=== PATIENT | male | born 1955 | race African-American/Black ===

== ENCOUNTER → 2017-11-29 08:19 | Outpatient (CLI) | payer MEDICAID, SELFPAY ==
--- NOTE | 2017-11-29 15:18 | PFTCOMP ---
COMPLETE PULMONARY FUNCTION TEST INTERPRETATION Brief HPI: Patient is a 62 year old Black male, currently under the care of Francy Stearns, who presents to [facility] for complete pulmonary function tests secondary to diagnosis of COPD. Respiratory therapist reports good effort and reproducible results. Interpretation: Forced expiration spirometry shows a moderately-severe large airways obstructive ventilatory defect with an FEV1 of 50% predicted. There is a significant bronchodilator response in FVC by ATS criteria. Spirograms are of good quality and plateau slowly, indicating slowly emptying areas of the lungs. The respiratory flow volume loop shows decreased expiratory flow rates at all lung volumes consistent with airway obstruction. Lung volumes by body plethysmography show a normal total lung capacity at 7.46 L, 106% predicted. FRC and RV are elevated out of proportion. Lung volume measurements are consistent with air-trapping. Diffusion capacity by carbon monoxide is decreased at 59% predicted. The airway resistance is elevated. No previous pulmonary function tests were available for review. Impression: Partially reversible moderately severe large airways obstructive ventilatory defect resulting in air trapping and a symmetric reduction diffusing capacity, consistent with a diagnosis of COPD.
== END ==
PROVIDERS: Referring Provider Nurse Practitioner Family; Visit Provider Nurse Practitioner Family
DX: J44.9 Chronic obstructive pulmonary disease, unspecified (principal)
CPT/HCPCS: 94060; 94726; 94729

== ENCOUNTER → 2018-09-18 08:36 | Outpatient (CLI) | payer MEDICAID, SELFPAY ==
--- NOTE | 2018-09-18 09:04 | RAD_ITS ---
STUDY: X-RAY CHEST REASON FOR EXAM: Male, 63 years old. COPD and asthma. TECHNIQUE: Frontal and lateral views of the chest. COMPARISON: None. FINDINGS: There is hyperexpansion of the lungs. There is opacity in the posterior right lung base consistent with infiltrate. Mass is not excluded. Probable trace right pleural effusion. Recommend follow-up. Normal left lung. Normal size heart. Normal mediastinum and yuni. Normal visualized pulmonary arteries. Normal visualized aortic arch and descending thoracic aorta. Normal visualized thoracic spine. Normal visualized ribs, clavicles, and shoulders. There is no demonstrated abnormality of the visualized soft tissue structures of the upper abdomen. RAD/Chest PA and Lateral IMPRESSION: Opacity in the posterior right lung base consistent with infiltrate. Mass is not excluded. Recommend follow-up. Electronically Signed: Hai Chairez MD at 17:16 EDT , Service support ,
--- NOTE | 2018-09-18 10:27 | US_ITS ---
STUDY: ABDOMINAL ULTRASOUND REASON FOR EXAM: Male, 63 years old. Abdominal pain. Previous right nephrectomy for renal cell carcinoma. TECHNIQUE: Transabdominal ultrasound was performed with real-time and static block scale imaging. TECHNICAL QUALITY: Adequate. COMPARISON: None. FINDINGS: Liver: The liver measures 17.2 cm. There is normal echogenicity of the liver. The bile ducts are within normal limits. There is hepatic color flow. The direction of portal flow is hepatopetal. There is no demonstrated mass lesion. Portal vein measurement: Gallbladder: Normal distended gallbladder. The gallbladder wall measures 2 mm. There is a negative sonographic Perez's sign. There is no pericholecystic fluid. There are no gallstones. Common Bile Duct (C.B.D.): The common bile duct measures 4 mm. Pancreas: Normal size of the head, body and tail of the pancreas. There is normal echogenicity of the pancreas. There is no demonstrated pancreatic mass or cyst. Spleen: Normal size of the spleen. The spleen measures 9.0 cm. Right Kidney: Surgically absent. Left Kidney: Normal size of the left kidney. The left kidney measures 11.7 cm. Normal renal cortex. The left cortex measures 2.3 cm. There is no demonstrated renal mass or cyst. There is no left hydronephrosis. Aorta: 2.3 cm I.V.C.: The IVC is patent. There is no ascites. Abnormal appearance of the visualized right hemithorax, see chest x-ray report US/Abdomen Complete IMPRESSION: No acute abnormality in the abdomen or pelvis. Electronically Signed: Hai Chairez MD at 17:43 EDT , Service support ,
== END ==
DX: J44.9 Chronic obstructive pulmonary disease, unspecified (principal); R10.84 Generalized abdominal pain
CPT/HCPCS: 71046; 76700

== ENCOUNTER 2018-09-20 15:59 | Inpatient (IN) | payer MEDICAID, SELFPAY ==
[2018-09-20] VITALS (11 sets, daily range): BP systolic 127–158; BP diastolic 74–87; PULSE 106–114; RESP 20–28; TEMP 37.1–37.3; O2SAT 90–95; BMI 22.6; BMI 21.6
--- NOTE | 2018-09-20 16:12 | EKG12_ITS ---
Test Reason : SOB Blood Pressure : / mmHG Vent. Rate : 108 BPM Atrial Rate : 108 BPM P-R Int : 194 ms QRS Dur : 064 ms QT Int : 300 ms P-R-T Axes : 078 072 055 degrees QTc Int : 402 ms Sinus tachycardia Nonspecific T wave abnormality Abnormal ECG Confirmed by ROMINA DUMONT, JOSÉ ([id number]), industrial editor PEDRO PETE ([id number]) on 09/25/2018 12:26:09 PM Referred By: Shanta Colon Confirmed By:JOSÉ VANEGAS MD
--- NOTE | 2018-09-20 16:20 | RAD_ITS ---
STUDY: X-RAY CHEST REASON FOR EXAM: Male, 63 years old. Chest pain TECHNIQUE: Frontal view of the chest COMPARISON: 09/18/2018 FINDINGS: There is opacity noted in the right lung base which is worse when compared with the prior exam. This is likely due to a combination of effusion and infiltrate. The left lung is clear. There is no left-sided effusion. There is no pneumothorax. The heart is normal in size. The visualized osseous structures are within normal limits. RAD/Chest 1 View (Portable) IMPRESSION: Increasing opacity in the right lung base which is likely due to a combination of effusion and infiltrate. Electronically Signed: Vladimir Leslie, at 16:32 EDT Tel , Service support ,
[2018-09-20] MEDS: Ipratropium/Albuterol Sulfate 3 ML AMPUL.NEB INHALATION ×2 (16:30→20:05)
[2018-09-20 17:11] LABS: Anion Gap 7 (5-15); BUN 17 mg/dL (7-18); BUN/Creat Ratio 11.5 RATIO (10-20); Calcium,Total 9.3 mg/dL (8.5-10.1); Chloride 97 mmol/L (98-107); Creatinine, Serum 1.48 mg/dL (0.70-1.30); EST Glomerular Filtration Rate 51 mL/min (>60); Est Glom Filt Rate - Afr Amer 62 mL/min (>60); Estimated Creatinine Clearance 55.49 ml/min; Glucose 102 mg/dL (74-106); Potassium 4.3 mmol/L (3.5-5.1); Sodium Level 129 mmol/L (136-145)
[2018-09-20] MEDS: Morphine 4 MG/ML Syringe IV (17:12)
[2018-09-20] MEDS: 0.9% Normal Saline 1,000 ML 150 ML IV (17:12)
[2018-09-20] MEDS: Ondansetron 4 MG/2 ML Vial IV (17:12)
[2018-09-20 17:14] LABS: Absolute Lymphocyte Count 1.44 X10^3/uL (0.83-4.51); Absolute Neutrophil Count 15.9 X10^3/uL (2.0-7.7); Basophil# 0.02 X10^3/uL; Basophil% 0.1 % (0-1); Eosinophil# 0.17 X10^3/uL; Eosinophils% 0.9 % (0-5); Hematocrit 38.8 % (40-54); Hemoglobin 13.6 g/dL (13.0-16.5); Lymphocyte # 1.44 X10^3/ul (4.0); Lymphocyte % 7.5 % (19-41); Mean Corp Hgb Conc 35.1 g/dL (32-36); Mean Corpuscular Hgb 33.2 pg (27.0-32.0); Mean Corpuscular Volume 94.6 fL (80-94); Mean Platelet Vol. 8.9 fl (6.2-12.0); Monocyte# 1.56 X10^3/uL; Monocyte% 8.1 % (0-10); NRBC Flagged by Analyzer 0 % (0-5); Neutrophil # 15.87 X10^3/uL (2.7-7.7); Neutrophil % 82.6 % (47-70); POSITIVE DIFFERENTIAL YES; Platelet Count 466 K/mm3 (150-450); RBC Distribution Width CV 11.9 % (11.6-14.6); RBC Distribution Width SD 41.3 fl (35.1-43.9); White Blood Count 19.2 K/mm3 (4.4-11.0)
[2018-09-20 17:21] LABS: Differential Indicated SCAN CRITERIA MET
[2018-09-20 17:31] LABS: D-Dimer Quantitative (DVT/PE) 3.77 FEU/ug/m (0.27-0.49)
--- NOTE | 2018-09-20 17:32 | ED.DCSUM_ITS ---
- ER Visit Summary Date of Service: 09/20/18 Chief Complaint: [Shortness of breath] History of Present Illness: The patient is a 63 M [presents to the emergency department shortness of breath for last 2 weeks. Patient has had some intermittent cough but just feels like he cannot get anything up. Patient s tates that he was recently seen a couple days ago at the [facility] by his primary care physician had a chest x-ray that showed questionable pneumonia. Patient also claims of right-sided chest discomfort that is worse with breathing and moving. Patient does have history of asthma and COPD. Patient has remote history of kidney cancer with a right kidney being resected. Patient had chills and sweats but no documented fever. Complains of dyspnea with exertion.] Physical Examination: [HEENT-PERRLA, EOMI. Cranial nerves II through XII grossly intact. TMs clear. Mucous membranes moist. No adenopathy. Cardiovascular-regular rate and rhythm without murmur or ectopy Lungs-breath sounds bilaterally. Patient has some coarse breath sounds and rhonchi in the right base. Few rales in the base noted. No accessory muscle use or retractions. Abdomen-normoactive bowel sounds, soft, nontender, no rebound or rigidity, no peritoneal signs. Extremities-intact ?4, normal range of motion, normal pulses, atraumatic] Test Results: [EKG obtained showed sinus rhythm with a ventricular rate of [address] changes. CBC with differential showing a 19.2. Chemistries showed a sodium 129, potassium 4.3, chloride 97, CO2 25. Troponin is less than 0.015. D-dimer was elevated at over 3. CT of the chest was ordered and is pending. Chest x-ray showed right lower lobe infiltrate. She was ordered.] Emergency Department Course and Treatment: [Started on Rocephin and Zithromax. Case was discussed with hospitalist will evaluate patient for admission] Treatment Plan: [Admit for IV antibiotics.] Disposition: [Admit] Impression: [Acquired pneumonia Dyspnea] This note was generated with [employer] dictation software. It may contain incorrect words, spelling, and punctuation that were not noted in review of the chart p rior to signing ED Disposition - Plan for ED Patient: Referrals: Katharina Nation,Giselle Ho [Primary Care Provider] -
--- NOTE | 2018-09-20 17:32 | CT_ITS ---
STUDY: CTA CHEST REASON FOR EXAM: Male, 63 years old. Dyspnea and shortness of breath RADIATION DOSAGE (If Supplied By Facility): CTDIvol = ( 9.69 ) mGy, DLP = ( 312.48 ) mGycm TECHNIQUE: The examination was performed with the intravenous administration of 100 IV Isovue 300. Post-processing of the angiographic images was performed, with multiplanar reformation and 3D reconstruction. Individualized dose optimization techniques were used for this CT. COMPARISON: September 20, 2018 chest radiograph FINDINGS: The main pulmonary arteries are well-opacified. There is poor opacification of the descending interlobar branch of the right pulmonary artery and segmental vessels to the right lower lobe as well as the subsegmental vessels to the left lower lobe which may be attributed to motion artifact as well as superimposed pulmonary parenchyma however cannot exclude coexisting pulmonary embolus. Atherosclerotic changes of the aorta without evidence for aneurysm.. There is no demonstrated aortic dissection. Normal heart and pericardium. There is right hilar nodularity possibly adenopathy as well as subcarinal adenopathy. There are tiny suleiman calcifications on the right Normal visualized trachea and bronchi. . Mild generalized interstitial thickening. There is a multiloculated right pleural effusion in association with consolidation of the right lower lobe demonstrating pocket of fluid which may be consistent with changes usually attributed to endobronchial or peribronchial obstruction Tiny calcified granuloma in right upper lobe Normal chest wall structures. Dorsal spine demonstrates mild spondylosis Normal visualized upper abdomen. CT/CTA Chest W/WO Contrast IMPRESSION: Mild diffuse interstitial thickening. Consolidation of the right lower lobe with fluid pocket which may be attributed to endobronchial or peribronchial obstruction in association with right hilar and subcarinal adenopathy Suboptimal opacification of the vessels to the lower lobes primarily due to artifact. . Cannot definitively exclude coexisting pulmonary embolus. Would recommend Doppler study of the venous system of lower extremities if clinically warranted Electronically Signed: Salomon Jose MD at 19:07 EDT , Service support ,
--- NOTE | 2018-09-20 17:37 | NURSING ---
MED SURG PNEUMONIA, DYSPNEA KORAM
--- NOTE | 2018-09-20 17:44 | HP.PCM_ITS ---
History of Present Illness Date of Admission: 09/20/18 Chief Complaint: shortness of breath The patient is a 63 year old M past medical history as listed. He was admitted through the ED on 09/20/2018 with complaint of shortness of breath over the past few weeks which had worsened on the day of admission. He also had associated cough which was nonproductive as he said he felt a difficulty expectorating sputum. Shortness of breath was present both at rest and with exertion. He denied any fever chills, palpitations or dizziness but did admit to some mild diarrhea. He also had left-sided chest pain which was worsened with breathing . review of systems otherwise negative. Labs were significant for pulse rate of 114 respiratory rate of 28 with temperature of 98.9 at time of review. Blood pressure was 146/87. Chemistry was significant for sodium of 129 and creatinine of 1.48. CBC showed WBC of 19.2 and hemoglobin of 13.6 with platelets of 466. Chest x-ray showed increasing opacity in the right lung base likely due to combination of effusion and infiltrate. His d-dimer was also elevated and CT angiogram was pending at time of review. He has been admitted to be managed for sepsis due to community acquired pneumonia. [] Past Medical History Allergies grass pollen Allergy (Verified 09/20/18 16:00) Shortness of breath mold Allergy (Verified 09/20/18 16:00) Shortness of breath Surgical History: dilatation and curettage, - - nephrectomy o/a of kidney tumor Lives: Spouse/ Significant Other Smoking Status: Heavy Smoker (>10/day) Tobacco Use: Non-smoker Alcohol: None, Heavy - *Family History Maternal History Items: No pertinent history Paternal History Items: No pertinent history Review of Systems Constitutional: Reports: Malaise, Weakness, Fatigue. Denies: Chills, Fever, We ight Change Eyes: Denies: Blurred vision HEENT: Denies: Head Aches, Sinus Congestion, Sinus Drainage Cardiovascular: Reports: Chest Pain - left sided pleuritic chest pain, Palpitations. Denies: Chest Pressure, Chest Tightness, Edema Respiratory: Reports: Cough, Pleuritic Pain, Shortness of Breath, Shortness of breath at rest, Shortness of breath upon exertion, Wheezing. Denies: Hemoptysis, Sputum production Gastrointestinal: Reports: Diarrhea. Denies: Abdominal Pain, Nausea, Vomiting Genitourinary: Denies: Dysuria Musculoskeletal: Denies: Joint Pain, Joint Tenderness Skin: Denies: Rash, Wounds Neurological: Denies: Numbness, Tingling, Focal weakness Psychiatric: Denies: Anxiety, Depression, Homicidal Ideations, Suicidal Ideations Hematologic/ Lymphatic: Denies: Easy Bruising, Easy Bleeding VTE Information - Inpt Only VTE Present on Admission: No VTE Pharm Prophylaxis ordered?: Yes - Physical Exam General: Alert, Oriented x3, Cooperative, No apparent distress HEENT: Atraumatic, PERRLA, EOMI, Normocephalic Oral: Moist Mucosa Neck: Supple, No JVD, Negative Carotid Bruits Lungs: - - significantly decreased breath sounds in right mid and lower lung acuña. NO wheezing or crackles Cardiovascular: Normal S1, Normal S2, No murmurs, Tachycardic Abdomen: Bowel Sounds Present, Soft, Non Tender Extremities: No clubbing, No cyanosis, No edema, Capillary Refill Less than 3 Seconds Skin: No rashes, No breakdown Musculoskeletal: No Tenderness to Palpation of Joints or Extremities Lymphatic: No Cervical, Supraclavicular, or Inguinal Adenopathy Neurological: Cranial nerves II-XII grossly intact Psych/Mental Status: Normal Affect, Appropriate, Alert and oriented to time, place, person, mood and affect Vital Signs Temp Pulse Resp BP Pulse Ox 98.9 F 114 H 28 H 146/87 H 93 09/20/18 17:03 09/20/18 17:39 09/20/18 17:39 09/20/18 17:39 09/20/18 17:43 Oxygen Delivery Method Room Air Weight: 165 lb Body Mass Index (BMI) 22.6 Laboratory Tests Past 24 Hrs 09/20/18 09/20/18 09/20/18 16:30 16:30 16:30 WBC 19.2 H RBC 4.10 L Hgb 13.6 Hct 38.8 L MCV 94.6 H MCH 33.2 H MCHC 35.1 RDW Std Deviation 41.3 RDW Coeff of Clemencia 11.9 Plt Count 466 H MPV 8.9 Immature Gran % (Auto) 0.800 Neut % (Auto) 82.6 H Lymph % (Auto) 7.5 L [place] % (Auto) 8.1 Eos % (Auto) 0.9 Baso % (Auto) 0.1 Absolute Neuts (auto) 15.9 H Absolute Lymphs (auto) 1.44 Absolute Nucleated RBC 0.00 Nucleated RBC % 0 D-Dimer Quant (PE/DVT) 3.77 H* Sodium 129 L Potassium 4.3 Chloride 97 L Carbon Dioxide 25.0 Anion Gap 7 BUN 17 Creatinine 1.48 H Estim Creat Clear Calc 55.49 Est GFR (MDRD) Af Amer 62 Est GFR (MDRD) Non-Af 51 L BUN/Creatinine Ratio 11.5 Glucose 102 Calcium 9.3 Troponin I < 0.015 Diagnostic Data Chest X-Ray 09/20/18 16:20 IMPRESSION: Increasing opacity in the right lung base which is likely due to a combination of effusion and infiltrate. Electronically Signed: Vladimir Mariama, at 16:32 EDT Tel , Service support , Assessment/Plan 63-year-old male admitted with complaint of shortness of breath and chest pain. 1. Sepsis due to community acquired pneumonia * admit to PCU with telemetry * SIRS criteria is 3/4 (tachycardia, tachypnea and leucocytosis) with pneumonia as focus of infection * started on IV ceftriaxone and azithromycin; will continue * get blood and sputum cultures as well as sputum gram stain * hydrate with IVF NS per sepsis protocol * check lactic acid * breathing treatments. Titrate oxygen to maintain sats>90% * 2. Hyponatremia. Sodium is 129. This is likely due to dehydration he also has elevated creatinine of 1.48. Will hydrate and monitor. 3. ANTOINE: Creatinine is 1.48. No baseline to compare with. This is likely due to dehydration. Will hydrate with IV fluids and monitor. COPD: Give breathing treatments. 4. History of nicotine dependence: Smokes 1 pack daily. Counseled to quit. Nicotine patch 21 mg daily. Prophylaxis: Lovenox Code Visit Inpatient E&M: 58767 Init Hosp L3
[2018-09-20 17:51] LABS: Differential Comment SCANNED
[2018-09-20] MEDS: Ceftriaxone 1 GM/50 ML BAG IV (17:57)
[2018-09-20 18:31] LABS: Lactic Acid 1.8 mmol/L (0.4-2.0)
[2018-09-20] MEDS: Fluticasone 0.05% 1 SPRAY NASAL.SRY NASAL (21:12)
[2018-09-20] MEDS: Acetaminophen 500 MG Tablet 1000 MG PO (22:13)
[2018-09-20] MEDS: MELATONIN 3 MG TABLET PO (22:13)
[2018-09-21] VITALS (18 sets, daily range): BP systolic 120–144; BP diastolic 67–81; PULSE 98–119; RESP 16–20; TEMP 36.9–38.5; O2SAT 92–97
[2018-09-21 06:00] LABS: Absolute Neutrophil Count 14.1 X10^3/uL (2.0-7.7); Basophil# 0.02 X10^3/uL; Basophil% 0.1 % (0-1); Eosinophil# 0.24 X10^3/uL; Eosinophils% 1.3 % (0-5); Hematocrit 35.3 % (40-54); Hemoglobin 12.2 g/dL (13.0-16.5); Lymphocyte % 8.4 % (19-41); Mean Corp Hgb Conc 34.6 g/dL (32-36); Mean Corpuscular Hgb 32.8 pg (27.0-32.0); Mean Corpuscular Volume 94.9 fL (80-94); Mean Platelet Vol. 8.9 fl (6.2-12.0); Monocyte# 1.92 X10^3/uL; Monocyte% 10.7 % (0-10); NRBC Flagged by Analyzer 0 % (0-5); Neutrophil # 14.07 X10^3/uL (2.7-7.7); Neutrophil % 78.8 % (47-70); POSITIVE DIFFERENTIAL YES; Platelet Count 388 K/mm3 (150-450); RBC Distribution Width CV 11.9 % (11.6-14.6); RBC Distribution Width SD 41.7 fl (35.1-43.9); Red Blood Count 3.72 M/mm3 (4.6-6.2); White Blood Count 17.9 K/mm3 (4.4-11.0)
[2018-09-21 06:11] LABS: Differential Indicated SCAN CRITERIA MET
[2018-09-21 06:21] LABS: Anion Gap 8 (5-15); BUN 19 mg/dL (7-18); BUN/Creat Ratio 14.1 RATIO (10-20); Calcium,Total 8.3 mg/dL (8.5-10.1); Chloride 99 mmol/L (98-107); Creatinine, Serum 1.35 mg/dL (0.70-1.30); EST Glomerular Filtration Rate 57 mL/min (>60); Est Glom Filt Rate - Afr Amer 69 mL/min (>60); Estimated Creatinine Clearance 57.87 ml/min; Glucose 127 mg/dL (74-106); Potassium 4.8 mmol/L (3.5-5.1); Sodium Level 131 mmol/L (136-145)
[2018-09-21] MEDS: Ipratropium/Albuterol Sulfate 3 ML AMPUL.NEB INHALATION ×4 (06:46→20:22)
[2018-09-21] MEDS: Budesonide Respules 0.5 MG/2 ML AMPUL.NEB. INHALATION ×2 (06:46→20:22)
[2018-09-21 06:58] LABS: Differential Comment SCANNED; Platelet Estimate SLT INC (ADEQ)
[2018-09-21] MEDS: Fluticasone 0.05% 1 SPRAY NASAL.SRY NASAL ×2 (10:01→21:24)
[2018-09-21] MEDS: Ceftriaxone 1 GM/50 ML BAG IV ×2 (10:02→23:02)
[2018-09-21] MEDS: Enoxaparin 40 MG/0.4 ML Syringe SC (10:02)
--- NOTE | 2018-09-21 11:47 | CASEMGMT ---
RN CM ENHANCED ENVIRONMENTAL OPERATOR CM to room to meet with patient for initial transition planning/care coordination assessment. RN LARISSA introduced self and role at [facility]. Pt voices understanding and consents to assessment at this time. Pt resting in bed in no distress at this time. Pt is A/O at this time and answers all questions appropriately. Care providers, pharmacy, and demographics verified at this time. PCP: Giselle Ho [facility] Specialists: Denies Preferred Pharmacy: [facility] [place] Insurance: [employer] Prescription Benefit: Yes Living Will/HPOA: Pt does not currently have LW/HCPOA and declines wanting any info. LNOK: Living Arrangements: Lives with in 2 story home. Denies difficulty with stairs. States is independent w/ADL's and he and his share home mgmt tsks. He states his does the mowing d/t his allergies. Transportation: Pt states drives self and states no transportation concerns at this time. will drive home @ d/c DME: Denies using any DME and denies needs. Does not have home O2. Denies preference of DME company if he would need to go home on O2. HHC/SNF: No history of either and denies needs. No needs identified. PT/OT evals pending. Pt wishes to return home and states has no concerns with going home at time of discharge. CM to follow for home oxygen needs and any further discharge planning/needs. Pt voices no further concerns/needs at this time. Advised pt to ask for CM if any further questions/concerns/needs arise. Voices understanding. Pt discharge wishes: Home w/spousal support. Plan: Home w/spousal support and discharge plans in place. Erick GAFFNEY RN, CM
[2018-09-21] MEDS: Acetaminophen 500 MG Tablet 1000 MG PO ×2 (11:57→21:45)
[2018-09-21] MEDS: Magnesium Citrate 300 ML 150 ML PO (13:43)
[2018-09-21 15:28] LABS: Pathologist Review Reviewed
--- NOTE | 2018-09-21 16:16 | PN_ITS ---
Subjective: Patient seen and examined. Reports his breathing is not good. Denies improvement in breathing overnight. Denies fever, chills. Reports occasional cough, nonproductive. - Physical Exam General: Alert, Oriented x3, Cooperative HEENT: Atraumatic, PERRLA, EOMI, Normocephalic Neck: Supple, No JVD, Negative Carotid Bruits Lungs: Clear to auscultation, Diminished Cardiovascular: Regular rate, Regular Rhythm, Normal S1, Normal S2, No murmurs Abdomen: Bowel Sounds Present, Soft, Non Tender, Non-Distended Extremities: No clubbing, No cyanosis, No edema, Capillary Refill Less than 3 Seconds Skin: No rashes, No breakdown Musculoskeletal: No Tenderness to Palpation of Joints or Extremities Neurological: Cranial nerves II-XII grossly intact, Neuro grossly intact Psych/Mental Status: Normal Affect, Appropriate Vital Signs Temp Pulse Resp BP Pulse Ox 99 F 113 H 16 141/67 H 94 09/21/18 10:26 09/21/18 15:05 09/21/18 14:44 09/21/18 10:26 09/21/18 10:26 Oxygen Flow Rate (L/min) 2 Oxygen Delivery Method Nasal Cannula Weight: 156 lb 15.506 oz Body Mass Index (BMI) 21.6 Intake and Output for Last 24 Hours 09/19/18 09/20/18 09/21/18 23:59 23:59 23:59 Intake Total 1603 / 1603 800 / 800 Output Total 200 / 200 Balance 1403 / 1403 800 / 800 Microbiology Past 72 Hours 09/21/18 07:40 Streptococcus pneumoniae Antigen (M - Final Urine, Random 09/21/18 07:40 Legionella Antigen - Final Urine, Clean Catch Laboratory Tests Past 24 Hrs 09/20/18 09/20/18 09/20/18 16:30 16:30 16:30 WBC 19.2 H RBC 4.10 L Hgb 13.6 Hct 38.8 L MCV 94.6 H MCH 33.2 H MCHC 35.1 RDW Std Deviation 41.3 RDW Coeff of Clemencia 11.9 Plt Count 466 H MPV 8.9 Immature Gran % (Auto) 0.800 Neut % (Auto) 82.6 H Lymph % (Auto) 7.5 L [place] % (Auto) 8.1 Eos % (Auto) 0.9 Baso % (Auto) 0.1 Absolute Neuts (auto) 15.9 H Absolute Lymphs (auto) 1.44 Absolute Nucleated RBC 0.00 Nucleated RBC % 0 Differential Comment SCANNED Diff Path Review Platelet Estimate D-Dimer Quant (PE/DVT) 3.77 H* Sodium 129 L Potassium 4.3 Chloride 97 L Carbon Dioxide 25.0 Anion Gap 7 BUN 17 Creatinine 1.48 H Estim Creat Clear Calc 55.49 Est GFR (MDRD) Af Amer 62 Est GFR (MDRD) Non-Af 51 L BUN/Creatinine Ratio 11.5 Glucose 102 Lactic Acid Calcium 9.3 Troponin I < 0.015 09/20/18 09/21/18 09/21/18 16:30 05:25 05:25 WBC 17.9 H RBC 3.72 L Hgb 12.2 L Hct 35.3 L MCV 94.9 H MCH 32.8 H MCHC 34.6 RDW Std Deviation 41.7 RDW Coeff of Clemencia 11.9 Plt Count 388 MPV 8.9 Immature Gran % (Auto) 0.700 Neut % (Auto) 78.8 H Lymph % (Auto) 8.4 L [place] % (Auto) 10.7 H Eos % (Auto) 1.3 Baso % (Auto) 0.1 Absolute Neuts (auto) 14.1 H Absolute Lymphs (auto) 1.50 Absolute Nucleated RBC 0.00 Nucleated RBC % 0 Differential Comment SCANNED Diff Path Review Reviewed Platelet Estimate SLT INC D-Dimer Quant (PE/DVT) Sodium 131 L Potassium 4.8 Chloride 99 Carbon Dioxide 24.0 Anion Gap 8 BUN 19 H Creatinine 1.35 H Estim Creat Clear Calc 57.87 Est GFR (MDRD) Af Amer 69 Est GFR (MDRD) Non-Af 57 L BUN/Creatinine Ratio 14.1 Glucose 127 H Lactic Acid 1.8 Calcium 8.3 L Troponin I Medical Necessity - Tobacco Use Smoking Status: Heavy Smoker (>10/day) Tobacco Use: Non-smoker Assessment/Plan 1. Acute sepsis secondary to community acquired pneumonia-chest x-ray admission with increasing opacity in the right lung base. Chest CTA shows consolidation of the right lower lobe with fluid pocket which may be attributed to endobronchial or peribronchial obstruction and associated with right hilar and subcarinal adenopathy. Continue supplement oxygen to maintain O2 at or above 90%. He was not documented to be hypoxic since admission. Albuterol and DuoNeb aerosols. IV azithromycin and IV Rocephin. Send sputum for culture. CT of chest could not definitively exclude PE. D-dimer 3.77. If patient does not improve with treatment of pneumonia, will obtain VQ scan or repeat CTA of chest. 2. Hyponatremia-suspected secondary to hypovolemia. Improved with IV fluids. Trend BMP. 3. Acute kidney injury-suspected secondary to mild dehydration. Improving with IV fluids. Trend BMP. 4. Chronic COPD-no acute exacerbation. As needed albuterol aerosol. 5. Tobacco dependence-recommended tobacco cessation. Nicotine replacement patch. DVT prophylaxis-Lovenox subcu This patient was seen by ALEXUS Vallejo under the supervision of Dr. Ellis.
[2018-09-21] MEDS: guaiFENesin/Codeine 5 ML UDC PO (21:23)
[2018-09-21] MEDS: MELATONIN 3 MG TABLET PO (21:28)
[2018-09-21] MEDS: 0.9% NaCl Peripheral Flush Adult/Peds IV (21:48)
[2018-09-22] VITALS (12 sets, daily range): BP systolic 114–129; BP diastolic 52–80; PULSE 98–117; RESP 18–24; TEMP 36.8–38.5; O2SAT 89–100
--- NOTE | 2018-09-22 | FLU_PTH ---
PATIENT: JOSIAH ALVAREZ LOC: [facility] U#:[id number] AGE/SX: 63/M ROOM: [facility] RE09/20/[address]: Dr. Brian Ellis DO : 1955 BED: 1 DIS: 09/22/2018 SPEC #: [id number] RECD: 09/22/18 10:33 STATUS: GABRIELA REQ #: [id number] GIOVANNI: 09/22/18 00:[address]: Brian Ellis DEPT: CYTOLOGY RECD BY: Amilcar Butterfield ENTERED: 09/22/18 11:00 SP TYPE: Fluid OTHR DR: MD Dr. Shanta Bass MD [facility] Tissues: THORACIC FLUID Procedures: Special Stain Group II Surgery Specimen Level IV Cytospin Fluid HEADER OPERATION: Ultrasound-guided right thoracentesis PRE-OP DIAGNOSIS: Right pleural effusion TISSUE SUBMITTED: Thoracentesis fluid for cytology DIAGNOSIS CYTOLOGY Thoracentesis fluid for cytology (cytospin and cell block): Negative for malignant cells. Acute inflammation. See comment. SJ:rg 09/25/18 COMMENT Clinical correlation and appropriate follow up are necessary. CYTOLOGY STUDY Slides are reviewed. CYTOLOGY GROSS Received is 100 ml of cloudy yellow fluid labeled with the patient's name and and designated per the requisition as thoracentesis. Submitted for cytology preparation including cell block. / 09/22/18 TC:2 CPT: 91524, 88011
[2018-09-22] MEDS: guaiFENesin/Codeine 5 ML UDC PO (03:28)
[2018-09-22 05:50] LABS: Hematocrit 31.1 % (40-54); Hemoglobin 11.1 g/dL (13.0-16.5); Mean Corp Hgb Conc 35.7 g/dL (32-36); Mean Corpuscular Hgb 33.1 pg (27.0-32.0); Mean Corpuscular Volume 92.8 fL (80-94); Mean Platelet Vol. 9.2 fl (6.2-12.0); Platelet Count 339 K/mm3 (150-450); RBC Distribution Width CV 11.9 % (11.6-14.6); RBC Distribution Width SD 40.9 fl (35.1-43.9); Red Blood Count 3.35 M/mm3 (4.6-6.2); White Blood Count 18.3 K/mm3 (4.4-11.0)
--- NOTE | 2018-09-22 05:55 | RAD_ITS ---
STUDY: X-RAY CHEST REASON FOR EXAM: Male, 63 years old. Shortness of breath. TECHNIQUE: PA and lateral views of the chest. COMPARISON: Comparison is made with prior study dated September 20, 2018. FINDINGS: EKG electrodes are seen. Elevation of the right hemidiaphragm with progressive right pleural effusion and underlying infiltration and/or atelectasis. A right-sided endobronchial lesion should be ruled out. Increased markings at the left lung base as well as blunting of the left costophrenic angle and compared with the left basilar atelectasis and/or infiltrate. This is new as compared to prior study. Normal size heart. Normal mediastinum and yuni. Normal visualized pulmonary arteries. Normal visualized aortic arch and descending thoracic aorta. Normal visualized thoracic spine. Normal visualized ribs, clavicles, and shoulders. There is no demonstrated abnormality of the visualized soft tissue structures of the upper abdomen. RAD/Chest PA and Lateral IMPRESSION: Progressive right lower lobe infiltration volume loss with the pleural effusion. Left basilar atelectasis and/or infiltrate with blunting of the left costophrenic angle. Electronically Signed: Herb Beal, at 8:18 EDT , Service support ,
[2018-09-22 06:05] LABS: Anion Gap 7 (5-15); BUN 14 mg/dL (7-18); BUN/Creat Ratio 13.6 RATIO (10-20); Calcium,Total 8.4 mg/dL (8.5-10.1); Chloride 99 mmol/L (98-107); Creatinine, Serum 1.03 mg/dL (0.70-1.30); EST Glomerular Filtration Rate 78 mL/min (>60); Est Glom Filt Rate - Afr Amer 94 mL/min (>60); Estimated Creatinine Clearance 75.85 ml/min; Glucose 129 mg/dL (74-106); Potassium 4.4 mmol/L (3.5-5.1); Sodium Level 131 mmol/L (136-145)
[2018-09-22] MEDS: Ipratropium/Albuterol Sulfate 3 ML AMPUL.NEB INHALATION ×3 (06:40→15:13)
[2018-09-22] MEDS: Budesonide Respules 0.5 MG/2 ML AMPUL.NEB. INHALATION (06:41)
[2018-09-22 06:44] LABS: ALB/GLOB Ratio 0.4 RATIO (0.9-2.4); Globulin 5.4 g/dL (2.2-4.2); LDH 133 U/L (87-241); Protein, Total 7.4 g/dL (6.4-8.2)
[2018-09-22 07:08] LABS: International Normalized Ratio 1.2; Partial Thromboplast Time 45.1 Seconds (24.1-36.2); Prothrombin Time (Protime)PT. 15.3 SECONDS (11.7-14.9)
--- NOTE | 2018-09-22 07:27 | US_ITS ---
PROCEDURE: ULTRASOUND GUIDED THORACENTESIS. DATE: September 22, 2018. INDICATION: Male, 63 years old. Right pleural effusion. PHYSICIAN: Herb Beal M.D. PROCEDURE: The risks, benefits, and alternatives to the procedure were explained to the patient. The specific risks of bleeding, infection, and pneumothorax requiring chest tube insertion were discussed and accepted. Written informed consent was obtained. Ultrasonographic evaluation of the right lower pleural space was carried out. An adequate pocket was identified. The patient was placed in the sitting, upright position. The overlying skin was prepped and draped in sterile fashion. 1% lidocaine was administered subcutaneously for local anesthesia. Under ultrasound guidance, a 5 Frisian thoracentesis needle/catheter system was advanced into the right posterior lower pleural fluid collection. Approximately 170 mL of ambreen-colored fluid was drained. The catheter was removed, and a sterile dressing was applied. A specimen was collected and sent to the laboratory for analysis, as requested by the referring clinician. The patient tolerated the procedure well. A chest x-ray was ordered. US/Thoracentesis W US IMPRESSION: Ultrasound-guided right thoracentesis. Electronically Signed: Herb Beal, at 11:29 EDT , Service support ,
--- NOTE | 2018-09-22 08:09 | PCM.CONS.PUL ---
Problem List (1) Asthma Status: Chronic Qualifiers: Asthma severity: unspecified severity Asthma persistence: unspecified Asthma complication type: unspecified Qualified Code(s): J45.909 - Unspecified asthma, uncomplicated (2) Seasonal allergies Status: Chronic (3) Pleural effusion Status: Acute (4) Stage 3 severe COPD by GOLD classification Status: Acute Comment: FEV1 50% 2017 Reason for Consult Date of Consultation: 09/22/18 Reason for Consultation: Abnormal CT History of Present Illness: The patient is a 63 year old M, with past medical history listed below, who presented to [facility] on 09/20/2018 secondary to worsening shortness of breath. Patient states he is been having issues with shortness of breath for the last year, but over the last 2 weeks has noted some intermittent cough and some pleuritic type right-sided chest pain. Patient had been seen a couple days ago by his primary care physician and had a chest x-ray showing questionable pneumonia. Patient reportedly does have a history of COPD and asthma, but does not have any information on the severity. Patient does have a history of a right kidney resection and had attributed his chest pains to this previously. Patient has had chills and night sweats, but denied any fever. Patient had noted some decreased exercise capacity. In the ER, patient was noted to be tachycardic at 108 bpm and a leukocytosis of 19.2. Sodium was slightly decreased at 129 and d-dimer was elevated. Troponin was negative. CT scan of the chest was personally reviewed and showed a right lower lobe infiltrate, so patient was placed on supplemental oxygen, Rocephin, Zithromax and admitted to the hospital for evaluation. Since being in the hospital, patient reports little subjective improvement in his overall condition. Patient continues to have intermittent chest pain and states that it hurts to sit upright for extended periods of time. Patient has altered his sleeping position secondary to the chest pain. Patient denies any chest trauma. Patient does have an extensive smoking history, but states he has not had to discontinue his smoking secondary to breathing concerns. Patient denies any history of a previous pleural effusion patient is unaware of any cardiac history. Patient is not reporting any unintentional weight loss. Review of systems otherwise negative x10 systems. Past Medical History Past Medical History (Chronic Problems): Chronic Problems Asthma (Chronic) Seasonal allergies (Chronic) Allergies grass pollen Allergy (Verified 09/20/18 16:00) Shortness of breath mold Allergy (Verified 09/20/18 16:00) Shortness of breath Home Medications: Ambulatory Orders Medication Instructions Recorded Albuterol Sulfate [Ventolin Hfa] 2 puff INHALATION Q4H PRN PRN 09/20/18 Budesonide/Formoterol 160/4.5 2 puff INHALATION BID 09/20/18 [Symbicort 160/4.5 Mcg Inhaler (SP)] Fluticasone 0.05% [Flonase Nasal 1 spray NASAL BID 09/20/18 [place]] Tiotropium [place] [Spiriva 2 puff INHALATION DAILY 09/20/18 Respimat] Surgical History: dilatation and curettage, - - nephrectomy o/a of kidney tumor Lives: Spouse/ Significant Other Smoking Status: Heavy Smoker (>10/day) Tobacco Use: Non-smoker Alcohol: None, Heavy - *Family History Maternal History Items: No pertinent history Paternal History Items: No pertinent history Review of Systems Comment: See HPI Patient Problems: Active and Suspected Problems Pleural effusion (Acute) Stage 3 severe COPD by GOLD classification (Acute) FEV1 50% 2018 Objective: CT scan of the chest was personally reviewed. This does show emphysematous changes of bilateral apices. Patient has what appears to be a loculated right-sided pleural effusion with external collapse of the right lower lobe. No significant pulmonary emboli are appreciated. Complete PFT (11/29/2017): Partially reversible severe large airways obstructive ventilatory defect with a symmetric reduction diffusing capacity (FVC 83%, FEV1 50%, TLC 106%, DLCO 59%) Patient does not have any echocardiograms in our system. - Physical Exam General: Alert, Oriented x3, Cooperative, - - Mild conversational dyspnea. Appears older than stated age. HEENT: Atraumatic, PERRLA, EOMI, Normocephalic, - - No scleral icterus or injection noted. Oral: Moist Mucosa, No Gingival or Mucosal Lesions/ Ulcerations Neck: Supple, No JVD, No Nodes, Trachea Midline Lungs: No rhonchi, No wheeze, No rales, Diminished - Right base, - - Dullness noted in the right base Cardiovascular: Regular rate, Regular Rhythm, Normal S1, Normal S2, No murmurs, No rub noted, No Gallop Abdomen: Bowel Sounds Present, Soft, Non Tender, Non-Distended Extremities: No clubbing, No cyanosis, No edema, No Calf Tenderness Skin: No rashes, No breakdown Musculoskeletal: No Tenderness to Palpation of Joints or Extremities Lymphatic: No Cervical, Supraclavicular, or Inguinal Adenopathy Neurological: Cranial nerves II-XII grossly intact, Neuro grossly intact, Motor Exam 5/5 strength throughout Psych/Mental Status: Alert and oriented to time, place, person, mood and affect Vital Signs Temp Pulse Resp BP Pulse Ox 37.4 C H 114 H 20 H 119/77 95 09/22/18 03:31 09/22/18 07:32 09/22/18 03:31 09/22/18 03:31 09/22/18 03:31 Oxygen Flow Rate (L/min) 2 Oxygen Delivery Method Nasal Cannula Weight: 71.2 kg Body Mass Index (BMI) 21.6 Intake and Output for Last 24 Hours 09/20/18 09/21/18 09/22/18 23:59 23:59 23:59 Intake Total 1603 / 1603 2282 / 2282 110 / 110 Output Total 200 / 200 300 / 300 Balance 1403 / 1403 2282 / 2282 -190 / -190 Microbiology Past 72 Hours 09/21/18 07:40 Streptococcus pneumoniae Antigen (M - Final Urine, Random 09/21/18 07:40 Legionella Antigen - Final Urine, Clean Catch Laboratory Tests Past 24 Hrs 09/21/18 09/22/18 09/22/18 05:25 05:20 05:20 WBC 18.3 H RBC 3.35 L Hgb 11.1 L Hct 31.1 L MCV 92.8 MCH 33.1 H MCHC 35.7 RDW Std Deviation 40.9 RDW Coeff of Clemencia 11.9 Plt Count 339 MPV 9.2 Diff Path Review Reviewed PT INR APTT Sodium 131 L Potassium 4.4 Chloride 99 Carbon Dioxide 25.0 Anion Gap 7 BUN 14 Creatinine 1.03 Estim Creat Clear Calc 75.85 Est GFR (MDRD) Af Amer 94 Est GFR (MDRD) Non-Af 78 BUN/Creatinine Ratio 13.6 Glucose 129 H Calcium 8.4 L Lactate Dehydrogenase Total Protein Globulin Albumin/Globulin Ratio 09/22/18 09/22/18 05:20 06:30 WBC RBC Hgb Hct MCV MCH MCHC RDW Std Deviation RDW Coeff of Clemencia Plt Count MPV Diff Path Review PT 15.3 H INR 1.2 APTT 45.1 H Sodium Potassium Chloride Carbon Dioxide Anion Gap BUN Creatinine Estim Creat Clear Calc Est GFR (MDRD) Af Amer Est GFR (MDRD) Non-Af BUN/Creatinine Ratio Glucose Calcium Lactate Dehydrogenase 133 Total Protein 7.4 Globulin 5.4 H Albumin/Globulin Ratio 0.4 L Clinical Impression(s) from Imaging Studies Chest X-Ray 09/20/18 16:20 IMPRESSION: Increasing opacity in the right lung base which is likely due to a combination of effusion and infiltrate. Electronically Signed: Vladimir Leslie, at 16:32 EDT Tel , Service support , Chest CTA 09/20/18 17:32 IMPRESSION: Mild diffuse interstitial thickening. Consolidation of the right lower lobe with fluid pocket which may be attributed to endobronchial or peribronchial obstruction in association with right hilar and subcarinal adenopathy Suboptimal opacification of the vessels to the lower lobes primarily due to artifact. . Cannot definitively exclude coexisting pulmonary embolus. Would recommend Doppler study of the venous system of lower extremities if clinically warranted Electronically Signed: Salomon Jose MD at 19:07 EDT , Service support , Chest X-Ray 09/22/18 05:55 IMPRESSION: Progressive right lower lobe infiltration volume loss with the pleural effusion. Left basilar atelectasis and/or infiltrate with blunting of the left costophrenic angle. Electronically Signed: Herb Beal, at 8:18 EDT , Service support , Assessment/Plan All Active Problems Pleural effusion (Acute) Stage 3 severe COPD by GOLD classification (Acute) RECOMMENDATIONS: 1. Diagnostic/therapeutic thoracentesis 2. Continue with bronchodilators and inhaled steroids 3. Wean oxygen as tolerated 4. Agree with antibiotics 5. Discontinue codeine IMPRESSIONS: 1. Loculated right-sided pleural effusion with right lower lobe collapse Unclear etiology at this time. Differential would include parapneumonic effusion, empyema or possible malignancy. Patient does have an extensive smoking history and a history of a right nephrectomy. Discussed thoracentesis. After review of the risks, benefits and alternatives, patient has agreed with this plan of care. Further recommendations once results are available, but patient may require transfer to a tertiary center for CT surgery eval if found to have empyema this would require chest tube versus VATS procedure. 2. Stage III COPD Patient does not appear to have significant wheezing on exam, so I agree with using inhaled corticosteroids for now. Cannot exclude the need for transition to systemic steroids. Continue with bronchodilators. 3. Active tobacco abuse/history of right nephrectomy/hyponatremia Complicates care, management, recovery and prognosis. Patient does not require 3% saline. Some concern for possible SIADH leading to hyponatremia. This may be a parapneumonic phenomenon versus paraneoplastic. Await results of thoracentesis. Code Visit Inpatient E&M: 64083 Init Hosp L3
--- NOTE | 2018-09-22 09:57 | CASEMGMT ---
According to [facility] website, the following are in-network tertiary facilities: [facility], [place], [facility], [place], [facility], [facility], [place], [facility], and . Yvette TYSON CM
--- NOTE | 2018-09-22 10:15 | RAD_ITS ---
STUDY: X-RAY CHEST REASON FOR EXAM: Male, 63 years old. Status post right thoracentesis. TECHNIQUE: AP inspiration and expiration views. COMPARISON: Comparison is made with prior study dated September 22, 2018 at 6:04 AM. FINDINGS: The patient is status post right thoracentesis. Residual pleural-parenchymal changes are present. No evidence of pneumothorax. RAD/Chest Insp/Exp 2 View IMPRESSION: Status post right thoracentesis. There is no evidence of pneumothorax. Residual pleural parenchymal changes at the right lung base. Electronically Signed: Herb Beal, at 10:46 EDT , Service support ,
[2018-09-22 10:34] LABS: Cytology, Body Fluid / CSF SEE PATHOLOGY REPORT
[2018-09-22] MEDS: Fluticasone 0.05% 1 SPRAY NASAL.SRY NASAL (10:56)
[2018-09-22] MEDS: Ceftriaxone 1 GM/50 ML BAG IV (10:57)
[2018-09-22] MEDS: guaiFENesin 1,200 MG Tablet 1200 MG PO (10:57)
[2018-09-22] MEDS: Polyethylene Glycol 3350 17 GM PACKET PO (10:57)
[2018-09-22] MEDS: 0.9% NaCl Peripheral Flush Adult/Peds IV (10:57)
[2018-09-22 10:58] LABS: Body Fluid Mononuclear WBC # 0.108 10^3/uL; Body Fluid Mononuclear WBC % 9.4 %; Body Fluid Polynuclear WBC % 90.6 %; Body Fluid Total Cells Counted 1.148 10^3/ul; White Blood Count/Body Fluid 1.148 10^3/uL
[2018-09-22 11:05] LABS: Glucose, Body Fluid 49 mg/dL (40-70); LDH,Body Fluid 545 Units/l (Not Establ.); Protein, Body Fluid 6.1 g/dL (Not Establ.)
[2018-09-22 11:27] LABS: Auto B Fluid Analyzer BKGD Ct COUNTS W/IN LIMITS (W/IN LIMITS); Source- Body Fluid THORACENTESIS
[2018-09-22 11:28] LABS: Appearance/Body Fluid SL CLDY; Color/Body Fluid LT YEL
[2018-09-22] MEDS: Acetaminophen 500 MG Tablet 1000 MG PO (12:04)
[2018-09-22 12:25] LABS: Red Cell Count/Body Fluid 64 /mm3
[2018-09-22 12:26] LABS: Body Fluid QC Type(s) BF1Q
--- NOTE | 2018-09-22 14:58 | PCM.PROGNOTE ---
Patient Problems: Active and Suspected Problems Pleural effusion (Acute) Stage 3 severe COPD by GOLD classification (Acute) FEV1 50% 2017 Subjective: Patient seen and examined. Denies significant improvement in breathing. To undergo right thoracentesis. Denies fever, chills. - Physical Exam General: Alert, Oriented x3, Cooperative HEENT: Atraumatic, PERRLA, EOMI, Normocephalic Neck: Supple, No JVD, Negative Carotid Bruits Lungs: Clear to auscultation, Diminished Cardiovascular: Regular rate, Regular Rhythm, Normal S1, Normal S2, No murmurs Abdomen: Bowel Sounds Present, Soft, Non Tender, Non-Distended Extremities: No clubbing, No cyanosis, No edema, Capillary Refill Less than 3 Seconds Skin: No rashes, No breakdown Musculoskeletal: No Tenderness to Palpation of Joints or Extremities Neurological: Cranial nerves II-XII grossly intact, Neuro grossly intact Psych/Mental Status: Normal Affect, Appropriate Vital Signs Temp Pulse Resp BP Pulse Ox 98.8 F 115 H 20 H 114/52 L 97 09/22/18 11:50 09/22/18 11:50 09/22/18 11:50 09/22/18 11:50 09/22/18 11:50 Oxygen Flow Rate (L/min) [4] 3 Oxygen Flow Rate (L/min) [3] 2 Oxygen Flow Rate (L/min) [2] 2 Oxygen Flow Rate (L/min) [1 ( 2 Initial Baseline)] Oxygen Flow Rate (L/min) 3 Oxygen Delivery Method [4] Nasal Cannula Oxygen Delivery Method [3] Room Air Oxygen Delivery Method [2] Nasal Cannula Oxygen Delivery Method [1 ( Nasal Cannula Initial Baseline)] Oxygen Delivery Method Nasal Cannula Weight: 156 lb 15.506 oz Body Mass Index (BMI) 21.6 Intake and Output for Last 24 Hours 09/20/18 09/21/18 09/22/18 23:59 23:59 23:59 Intake Total 1603 / 1603 2282 / 2282 110 / 110 Output Total 200 / 200 300 / 300 Balance 1403 / 1403 2282 / 2282 -190 / -190 Microbiology Past 72 Hours 09/22/18 10:33 Gram Stain - Final Fluid - Thoracentesis Fluid 09/22/18 09:40 Gram Stain - Final Sputum, Expectorated/Coughed 09/21/18 07:40 Streptococcus pneumoniae Antigen (M - Final Urine, Random 09/21/18 07:40 Legionella Antigen - Final Urine, Clean Catch Laboratory Tests Past 24 Hrs 09/21/18 09/22/18 09/22/18 05:25 05:20 05:20 WBC 18.3 H RBC 3.35 L Hgb 11.1 L Hct 31.1 L MCV 92.8 MCH 33.1 H MCHC 35.7 RDW Std Deviation 40.9 RDW Coeff of Clemencia 11.9 Plt Count 339 MPV 9.2 Diff Path Review Reviewed PT INR APTT Sodium 131 L Potassium 4.4 Chloride 99 Carbon Dioxide 25.0 Anion Gap 7 BUN 14 Creatinine 1.03 Estim Creat Clear Calc 75.85 Est GFR (MDRD) Af Amer 94 Est GFR (MDRD) Non-Af 78 BUN/Creatinine Ratio 13.6 Glucose 129 H Calcium 8.4 L Lactate Dehydrogenase Total Protein Globulin Albumin/Globulin Ratio Fluid Source Fluid Color Fluid Appearance Fluid WBC Fluid RBC Fluid Tot Cell Count Fld Polynuclear WBCs # Fld Polynuclear WBCs % Fluid Mononuclear WBCs Fld Mononuclear WBCs % Fl Pathologist Comment Fluid Glucose Fluid Total Protein Fluid LDH Fluid Comment 2 Miscellaneous Cytology 09/22/18 09/22/18 09/22/18 05:20 06:30 10:30 WBC RBC Hgb Hct MCV MCH MCHC RDW Std Deviation RDW Coeff of Clemencia Plt Count MPV Diff Path Review PT 15.3 H INR 1.2 APTT 45.1 H Sodium Potassium Chloride Carbon Dioxide Anion Gap BUN Creatinine Estim Creat Clear Calc Est GFR (MDRD) Af Amer Est GFR (MDRD) Non-Af BUN/Creatinine Ratio Glucose Calcium Lactate Dehydrogenase 133 Total Protein 7.4 Globulin 5.4 H Albumin/Globulin Ratio 0.4 L Fluid Source Fluid Color Fluid Appearance Fluid WBC Fluid RBC Fluid Tot Cell Count Fld Polynuclear WBCs # Fld Polynuclear WBCs % Fluid Mononuclear WBCs Fld Mononuclear WBCs % Fl Pathologist Comment Fluid Glucose 49 Fluid Total Protein 6.1 Fluid LDH 545 Fluid Comment 2 Miscellaneous Cytology 09/22/18 09/22/18 10:33 10:33 WBC RBC Hgb Hct MCV MCH MCHC RDW Std Deviation RDW Coeff of Clemencia Plt Count MPV Diff Path Review PT INR APTT Sodium Potassium Chloride Carbon Dioxide Anion Gap BUN Creatinine Estim Creat Clear Calc Est GFR (MDRD) Af Amer Est GFR (MDRD) Non-Af BUN/Creatinine Ratio Glucose Calcium Lactate Dehydrogenase Total Protein Globulin Albumin/Globulin Ratio Fluid Source THORACENTESIS Fluid Color LT YEL Fluid Appearance SL CLDY Fluid WBC 1.148 Fluid RBC 64 Fluid Tot Cell Count 1.148 Fld Polynuclear WBCs # 1.040 Fld Polynuclear WBCs % 90.6 Fluid Mononuclear WBCs 0.108 Fld Mononuclear WBCs % 9.4 Fl Pathologist Comment May follow Fluid Glucose Fluid Total Protein Fluid LDH Fluid Comment 2 SEE COMMENT Miscellaneous Cytology Pending Medical Necessity - Tobacco Use Smoking Status: Heavy Smoker (>10/day) Tobacco Use: Non-smoker Assessment/Plan All Active Problems Pleural effusion (Acute) Stage 3 severe COPD by GOLD classification (Acute) 1. Acute sepsis secondary to right sided community acquired pneumonia complicated by right empyema-chest x-ray admission with increasing opacity in the right lung base. Chest CTA shows consolidation of the right lower lobe with fluid pocket which may be attributed to endobronchial or peribronchial obstruction and associated with right hilar and subcarinal adenopathy. Continue supplement oxygen to maintain O2 at or above 90%. Patient underwent right-sided thoracentesis 09/22/2018 with demonstrated exudative fluid. He was not documented to be hypoxic since admission. Albuterol and DuoNeb aerosols. IV azithromycin and IV Rocephin. Sputum culture pending. Plan for transfer to tertiary center for CT surgery eval pending bed availability. 2. Hyponatremia-suspected secondary to hypovolemia. Improved with IV fluids. Trend BMP. 3. Acute kidney injury-suspected secondary to mild dehydration. Improving with IV fluids. Trend BMP. 4. Chronic COPD-no acute exacerbation. As needed albuterol aerosol. 5. Tobacco dependence-recommended tobacco cessation. Nicotine replacement patch. DVT prophylaxis-Lovenox subcu This patient was seen by ALEXUS Vallejo under the supervision of Dr. Ellis.
--- NOTE | 2018-09-22 15:46 | PCM.DC.SUM ---
Discharge Date and Diagnosis Date of Admission: 09/20/18 Date of Discharge: 09/22/18 - Primary Discharge Diagnosis Active and Suspected Problems 1. Acute sepsis secondary to right sided community acquired pneumonia complicated by right empyema 2. Hyponatremia 3. Acute kidney injury 4. Chronic COPD 5. Tobacco dependence 6. History of right nephrectomy - Secondary Discharge Diagnosis Chronic Problems Asthma (Chronic) Seasonal allergies (Chronic) Hospital Course and Treatment Imaging Results: Diagnostic Data Chest CTA 09/20/18 17:32 IMPRESSION: Mild diffuse interstitial thickening. Consolidation of the right lower lobe with fluid pocket which may be attributed to endobronchial or peribronchial obstruction in association with right hilar and subcarinal adenopathy Suboptimal opacification of the vessels to the lower lobes primarily due to artifact. . Cannot definitively exclude coexisting pulmonary embolus. Would recommend Doppler study of the venous system of lower extremities if clinically warranted Electronically Signed: Salomon Jose MD at 19:07 EDT , Service support , Thoracentesis Ultrasound 09/22/18 07:27 IMPRESSION: Ultrasound-guided right thoracentesis. Electronically Signed: Herb Beal, at 11:29 EDT , Service support , Chest X-Ray 09/22/18 10:15 IMPRESSION: Status post right thoracentesis. There is no evidence of pneumothorax. Residual pleural parenchymal changes at the right lung base. Electronically Signed: Herb Beal, at 10:46 EDT , Service support , Dr. Lopez- Pulmonary Medicine Operations: None Procedures: Thoracentesis Summary of Care Provided: The patient is a 63 year old M admitted 09/20/2018 due to shortness of breath. 1. Acute sepsis secondary to right sided community acquired pneumonia complicated by right empyema-chest x-ray admission with increasing opacity in the right lung base. Chest CTA shows consolidation of the right lower lobe with fluid pocket which may be attributed to endobronchial or peribronchial obstruction and associated with right hilar and subcarinal adenopathy. Continue supplement oxygen to maintain O2 at or above 90%. Patient underwent right-sided thoracentesis 09/22/2018 with demonstrated exudative fluid. He was not documented to be hypoxic during admission however remains on supplemental oxygen. Albuterol and DuoNeb aerosols. IV azithromycin and IV Rocephin. Sputum culture pending. Transfer to tertiary center, [facility] for CT surgery eval. 2. Hyponatremia-suspected secondary to hypovolemia. Improved with IV fluids. Trend BMP. 3. Acute kidney injury-suspected secondary to mild dehydration. Improving with IV fluids. Trend BMP. 4. Chronic COPD-no acute exacerbation. As needed albuterol aerosol. 5. Tobacco dependence-recommended tobacco cessation. Nicotine replacement patch. 6. History of right nephrectomy General: Alert, Oriented x3, Cooperative HEENT: Atraumatic, PERRLA, EOMI, Normocephalic Neck: Supple, No JVD, Negative Carotid Bruits Lungs: Clear to auscultation, Diminished Cardiovascular: Regular rate, Regular Rhythm, Normal S1, Normal S2, No murmurs Abdomen: Bowel Sounds Present, Soft, Non Tender, Non-Distended Extremities: No clubbing, No cyanosis, No edema, Capillary Refill Less than 3 Seconds Skin: No rashes, No breakdown Musculoskeletal: No Tenderness to Palpation of Joints or Extremities Neurological: Cranial nerves II-XII grossly intact, Neuro grossly intact Psych/Mental Status: Normal Affect, Appropriate Patient seen and examined prior to discharge. Physical assessment as noted above. Patient is stable for discharge with follow up recommendations as noted above. This patient was seen by ALEXUS Vallejo under the supervision of Dr. Ellis. - Physical Exam Vital Signs Temp Pulse Resp BP Pulse Ox 98.8 F 101 H 18 114/52 L 97 09/22/18 11:50 09/22/18 15:13 09/22/18 15:13 09/22/18 11:50 09/22/18 11:50 Oxygen Flow Rate (L/min) [4] 3 Oxygen Flow Rate (L/min) [3] 2 Oxygen Flow Rate (L/min) [2] 2 Oxygen Flow Rate (L/min) [1 ( 2 Initial Baseline)] Oxygen Flow Rate (L/min) 3 Oxygen Delivery Method [4] Nasal Cannula Oxygen Delivery Method [3] Room Air Oxygen Delivery Method [2] Nasal Cannula Oxygen Delivery Method [1 ( Nasal Cannula Initial Baseline)] Oxygen Delivery Method Nasal Cannula Weight: 156 lb 15.506 oz Body Mass Index (BMI) 21.6 Intake and Output for Last 24 Hours 09/20/18 09/21/18 09/22/18 23:59 23:59 23:59 Intake Total 1603 / 1603 2282 / 2282 110 / 110 Output Total 200 / 200 300 / 300 Balance 1403 / 1403 2282 / 2282 -190 / -190 Microbiology Past 72 Hours 09/22/18 10:33 Gram Stain - Final Fluid - Thoracentesis Fluid 09/22/18 09:40 Gram Stain - Final Sputum, Expectorated/Coughed 09/21/18 07:40 Streptococcus pneumoniae Antigen (M - Final Urine, Random 09/21/18 07:40 Legionella Antigen - Final Urine, Clean Catch Laboratory Tests Past 24 Hrs 09/22/18 09/22/18 09/22/18 05:20 05:20 05:20 WBC 18.3 H RBC 3.35 L Hgb 11.1 L Hct 31.1 L MCV 92.8 MCH 33.1 H MCHC 35.7 RDW Std Deviation 40.9 RDW Coeff of Clemencia 11.9 Plt Count 339 MPV 9.2 PT INR APTT Sodium 131 L Potassium 4.4 Chloride 99 Carbon Dioxide 25.0 Anion Gap 7 BUN 14 Creatinine 1.03 Estim Creat Clear Calc 75.85 Est GFR (MDRD) Af Amer 94 Est GFR (MDRD) Non-Af 78 BUN/Creatinine Ratio 13.6 Glucose 129 H Calcium 8.4 L Lactate Dehydrogenase 133 Total Protein 7.4 Globulin 5.4 H Albumin/Globulin Ratio 0.4 L Fluid Source Fluid Color Fluid Appearance Fluid WBC Fluid RBC Fluid Tot Cell Count Fld Polynuclear WBCs # Fld Polynuclear WBCs % Fluid Mononuclear WBCs Fld Mononuclear WBCs % Fl Pathologist Comment Fluid Glucose Fluid Total Protein Fluid LDH Fluid Comment 2 Miscellaneous Cytology 09/22/18 09/22/18 09/22/18 06:30 10:30 10:33 WBC RBC Hgb Hct MCV MCH MCHC RDW Std Deviation RDW Coeff of Clemencia Plt Count MPV PT 15.3 H INR 1.2 APTT 45.1 H Sodium Potassium Chloride Carbon Dioxide Anion Gap BUN Creatinine Estim Creat Clear Calc Est GFR (MDRD) Af Amer Est GFR (MDRD) Non-Af BUN/Creatinine Ratio Glucose Calcium Lactate Dehydrogenase Total Protein Globulin Albumin/Globulin Ratio Fluid Source Fluid Color Fluid Appearance Fluid WBC Fluid RBC Fluid Tot Cell Count Fld Polynuclear WBCs # Fld Polynuclear WBCs % Fluid Mononuclear WBCs Fld Mononuclear WBCs % Fl Pathologist Comment Fluid Glucose 49 Fluid Total Protein 6.1 Fluid LDH 545 Fluid Comment 2 Miscellaneous Cytology Pending 09/22/18 10:33 WBC RBC Hgb Hct MCV MCH MCHC RDW Std Deviation RDW Coeff of Clemencia Plt Count MPV PT INR APTT Sodium Potassium Chloride Carbon Dioxide Anion Gap BUN Creatinine Estim Creat Clear Calc Est GFR (MDRD) Af Amer Est GFR (MDRD) Non-Af BUN/Creatinine Ratio Glucose Calcium Lactate Dehydrogenase Total Protein Globulin Albumin/Globulin Ratio Fluid Source THORACENTESIS Fluid Color LT YEL Fluid Appearance SL CLDY Fluid WBC 1.148 Fluid RBC 64 Fluid Tot Cell Count 1.148 Fld Polynuclear WBCs # 1.040 Fld Polynuclear WBCs % 90.6 Fluid Mononuclear WBCs 0.108 Fld Mononuclear WBCs % 9.4 Fl Pathologist Comment May follow Fluid Glucose Fluid Total Protein Fluid LDH Fluid Comment 2 SEE COMMENT Miscellaneous Cytology Home Medications: Medications to take at Discharge Albuterol Sulfate [Ventolin Hfa] 2 puff INHALATION Q4H PRN PRN 09/20/18 Budesonide/Formoterol 160/4.5 [Symbicort 160/4.5 Mcg Inhaler (SP)] 2 puff INHALATION BID 09/20/18 Fluticasone 0.05% [Flonase Nasal [place]] 1 spray NASAL BID 09/20/18 Tiotropium [place] [Spiriva Respimat] 2 puff INHALATION DAILY 09/20/18 Primary Care Physician: Giselle Borja [Primary Care Provider] - Disposition: Acute care Hospital Minutes spent on discharge:: 35 Patient Condition:: Stable Medical Necessity - Tobacco Use Smoking Status: Heavy Smoker (>10/day) Tobacco Use: Non-smoker Meaningful Use Info Meaningful Use Diagnoses (Choose all that apply): None applicable
[2018-09-25 11:59] LABS: Pathologist Comment/Body Fluid Reviewed
== END 2018-09-22 17:57 | disposition short-term general hospital (02) | DRG 720 ==
LOC: ED 16:16 → PCU 17:50
PROVIDERS: Internal Medicine Critical Care Medicine; Nurse Practitioner Family; Admitting Provider Student in an Organized Health Care Education/Training Program; Emergency Provider Emergency Medicine; Referring Provider Student in an Organized Health Care Education/Training Program; Visit Provider Internal Medicine
DX: A41.9 Sepsis, unspecified organism (principal); J18.9 Pneumonia, unspecified organism; J86.9 Pyothorax without fistula; E87.1 Hypo-osmolality and hyponatremia; J44.9 Chronic obstructive pulmonary disease, unspecified; N17.9 Acute kidney failure, unspecified; Z90.5 Acquired absence of kidney; F17.210 Nicotine dependence, cigarettes, uncomplicated; Z85.528 Personal history of other malignant neoplasm of kidney
CPT/HCPCS: 32555; 36415; 71045; 71046; 71275; 76700; 80048; 82945; 83605; 83615; 84156; 84157; 84484; 85025; 85027; 85379; 85610; 85730; 87040; 87070; 87075; 87077; 87205; 87449; 88108; 88305; 88313; 89050; 93005; 94640; 94762; 97161; 97802; 99251; 99285; J7030; J7040; Q9967; A4216; G0463; J2405

== ENCOUNTER 2018-10-06 21:17 | Emergency (ER) | payer MEDICAID, SELFPAY ==
[2018-09-20 18:49] VITALS: BMI 21.6
[2018-10-06 21:18] VITALS: BP 160/91; PULSE 104; RESP 16; TEMP 36.6; O2SAT 98; BMI 23.0
--- NOTE | 2018-10-06 22:40 | ED.VIS.GEN ---
History of Present Illness Chief Complaint: Complaint Detail of Chief Complaint: urinary retention Informant: Patient Onset: Weeks - 1 Context: Gradual Onset Timing: Continuous Quality: unable to empty bladder Current Severity: Severe Maximum Severity: Severe Narrative: Patient recently admitted to the hospital for pneumonia and a parapneumonic effusion for which he was transferred to [place] and had a pleurodesis, in the process he developed urinary retention, he states he has always had a hard time making a good stream of urine and was told by somebody his prostate was enlarged but he has never seen a urologist. He states for about the past week he has been having symptoms of overflow incontinence, he urinates frequently, has suprapubic discomfort because his bladder feels full, he cannot empty, and he constantly urinate small amounts at a time. No hematuria. Takes no anticoagulants or antiplatelets. Denies any fevers, nausea, vomiting, back pain. - Past Medical History (1) Pleural effusion Status: Resolved (2) Stage 3 severe COPD by GOLD classification Status: Chronic Comment: FEV1 50% 2017 (3) Asthma Status: Chronic (4) Seasonal allergies Status: Chronic Past Medical History - Allergies and Home Meds Allergies/Adverse Reactions: Allergies grass pollen Allergy (Verified 10/06/18 21:23) Shortness of breath mold Allergy (Verified 10/06/18 21:23) Shortness of breath Surgical History: - - nephrectomy o/a of kidney tumor Lives: Spouse/ Significant Other Smoking Status: Heavy Smoker (>10/day) - Family History Maternal Family History: Reports: No pertinent history Paternal Family History: Reports: No pertinent history Review of Systems General: Denies: Chills, Fever Eyes: Denies: Visual changes - bilaterally, Diplopia ENT: Denies: Rhinorrhea, Sore throat Cardiovascular: Denies: Chest pain, Palpitations Respiratory: Reports: Cough - Minimal residual. Denies: Dyspnea, Sputum, Dyspnea on exertion Gastrointestinal: Reports: Abdominal pain. Denies: Nausea, Vomiting Genitourinary: Reports: Frequency - See HPI. Denies: Dysuria, Hematuria Musculoskeletal: Denies: Neck pain, Back pain Skin: Denies: Rash, Wounds Neurological: Denies: Headache, Weakness, Numbness Physical Exam Vital Signs/Narrative: Vital Signs Temp Pulse Resp BP Pulse Ox 10/06/18 21:18 97.8 F 104 H 16 160/91 H 98 Inital Vital Signs reviewed: Yes General: Well nourished, Well developed, Acute Distress - Uncomfortable, standing trying to urinate Head: Normocephalic, Atraumatic Eyes: Perrl, EOMI ENT: Moist mucous membranes, No rhinorrhea Neck: Supple, Nontender Cardiovascular: Regular rate, Regular rhythm, No murmurs Respiratory: No distress, CTA bilaterally, Chest nontender Abdomen: Soft, Nondistended, Normal bowel sounds, Tender - Suprapubic only. Negative for: Guarding, Rebound tenderness : - - Normal penis, no blood at the urethral meatus Back: Nontender, Normal Inspection. Negative for: CVA tenderness Extremities: Nontender, No edema Skin: Normal color, No rash, No Trauma Neurological: Alert, Oriented x3, Cranial nerves II-XII grossly intact, Normal Strength, Normal Sensation Psychological: Normal affect, Normal Mood Diagnostic/Tx/Re-eval - Medical Decision Making Patient feels much better after Eugene placed and over a liter came out. He was given an initial Flomax, I will give him a prescription, his renal function is good and his urine is not infected. He will follow-up with urology. ED Disposition - Plan for ED Patient: Disposition: Home or Assisted Living Diagnosis: Acute urinary retention Instructions: URINARY RETENTION, Male Prescriptions: Tamsulosin HCl [Flomax] 0.4 mg PO DAILY #30 cap.er.24h Transmission Status: Pending to [facility]30 Referrals: [facility],Giselle Ho [Primary Care Provider] - Reggie Eckert MD [STAFF PHYSICIAN] -
[2018-10-06] MEDS: Lidocaine Jelly 2% 20 ML Syringe (URO-JET) 20 APPLIC TOPICAL (23:31)
[2018-10-06] MEDS: Tamsulosin HCl 0.4 MG Capsule PO (23:31)
[2018-10-06 23:45] LABS: Red Blood Cells-Urine 0 SEEN /hpf (0-5)
[2018-10-06 23:46] LABS: Absolute Neutrophil Count 8.2 X10^3/uL (2.0-7.7); Basophil# 0.02 X10^3/uL; Basophil% 0.2 % (0-1); Eosinophil# 0.16 X10^3/uL; Eosinophils% 1.4 % (0-5); Mean Corp Hgb Conc 33.3 g/dL (32-36); Mean Corpuscular Hgb 31.9 pg (27.0-32.0); Mean Corpuscular Volume 95.6 fL (80-94); Mean Platelet Vol. 8.3 fl (6.2-12.0); Monocyte# 0.92 X10^3/uL; NRBC Flagged by Analyzer 0 % (0-5); Neutrophil # 8.18 X10^3/uL (2.7-7.7); Neutrophil % 70.6 % (47-70); Platelet Count 624 K/mm3 (150-450); RBC Distribution Width CV 12.5 % (11.6-14.6); RBC Distribution Width SD 43.8 fl (35.1-43.9); Red Blood Count 2.51 M/mm3 (4.6-6.2); White Blood Count 11.6 K/mm3 (4.4-11.0)
[2018-10-06 23:46] LABS: Color, Urine Yellow (Yellow); Glucose, Dipstick Normal (Normal); Ketone-Dipstick Negative (Negative); Leukocyte Esterase-Dipstick 25 /ul (Negative); Nitrite-Dipstick Negative (Negative); Occult Blood-Urine Negative /ul (Negative); Protein-Dipstick 100 mg/dl (Negative); Urine Bilirubin Dipstick Negative (Negative); Urine Clarity Clear (Clear); Urine Urobilinogen Normal (Normal)
[2018-10-06 23:53] LABS: Bacteria RARE /hpf (None Seen); Mucous, Urine 1+ /hpf (<or=2+); Squamous Epithelial Cells - UA 0-5 SEEN /hpf (0-5); White Blood Cells 0-5 SEEN /hpf (0-5)
[2018-10-07 00:01] LABS: BUN 11 mg/dL (7-18); Creatinine, Serum 1.17 mg/dL (0.70-1.30); EST Glomerular Filtration Rate 67 mL/min (>60); Estimated Creatinine Clearance 70.19 ml/min; Glucose 100 mg/dL (74-106)
[2018-10-07 00:02] LABS: Anion Gap 7 (5-15); BUN/Creat Ratio 9.4 RATIO (10-20); Calcium,Total 8.7 mg/dL (8.5-10.1); Chloride 98 mmol/L (98-107); Est Glom Filt Rate - Afr Amer 81 mL/min (>60); Potassium 3.6 mmol/L (3.5-5.1); Sodium Level 130 mmol/L (136-145)
== END 2018-10-07 00:58 | disposition home or self-care (01) ==
PROVIDERS: Emergency Provider Emergency Medicine
DX: R33.9 Retention of urine, unspecified (principal); F17.210 Nicotine dependence, cigarettes, uncomplicated; Z90.5 Acquired absence of kidney; J44.9 Chronic obstructive pulmonary disease, unspecified
CPT/HCPCS: 51702; 80048; 81001; 85025; 99285; A4216

== ENCOUNTER → 2018-11-28 12:19 | Outpatient (CLI) | payer MEDICAID, SELFPAY ==
[2018-10-11 10:49] VITALS: BMI 23.0
[2018-11-28 13:13] LABS: Osmolality, Urine 557 mOsm/KG; Protein, Urine (Random) 201.1 mg/dL (<11.9); Protein:Creat Ratio 1609 mg/g CRE (0-200); Urine Sodium 130 mmol/L (Not Establ.)
[2018-11-28 13:26] LABS: Osmolality, Serum 286 mOsm/KG (280-301)
[2018-11-28 13:34] LABS: Albumin, Serum 3.2 g/dL (3.2-5.0); BUN 11 mg/dL (7-18); BUN/Creat Ratio 9.2 RATIO (10-20); Calcium,Total 8.2 mg/dL (8.5-10.1); Chloride 105 mmol/L (98-107); EST Glomerular Filtration Rate 65 mL/min (>60); Est Glom Filt Rate - Afr Amer 79 mL/min (>60); Glucose 115 mg/dL (74-106); Phosphorus 3.3 mg/dL (2.5-4.9); Potassium 3.9 mmol/L (3.5-5.1); Sodium Level 137 mmol/L (136-145)
[2018-11-29 13:50] LABS: Anti-dsDNA Ab 1 IU/mL (0-9)
[2018-11-29 16:07] LABS: Cytoplasmic Ab (C-ANCA) <1:20 titer (Neg:<1:20); PROEL- A/G Ratio 1.1 (0.7-1.7); PROEL- Albumin 3.7 g/dL (2.9-4.4); PROEL- Alpha-1 Globulin 0.2 g/dL (0.0-0.4); PROEL- Alpha-2 Globulin 0.7 g/dL (0.4-1.0); PROEL- Beta Globulin 1.2 g/dL (0.7-1.3); PROEL- Gamma Globulin 1.4 g/dL (0.4-1.8); PROEL- Globulin, Total 3.5 g/dL (2.2-3.9); PROEL- TOTAL PROTEIN 7.2 g/dL (6.0-8.5)
[2018-11-30 15:22] LABS: Complement C3 104 mg/dL (82-167); Perinuclear Ab (P-ANCA) <1:20 titer (Neg:<1:20)
== END ==
PROVIDERS: Referring Provider Internal Medicine Nephrology; Visit Provider Internal Medicine Nephrology
DX: N17.9 Acute kidney failure, unspecified (principal); E87.1 Hypo-osmolality and hyponatremia
CPT/HCPCS: 36415; 80069; 82570; 83930; 83935; 84156; 84165; 84300; 86160; 86225; 86256

== ENCOUNTER → 2019-05-09 16:45 | Outpatient (CLI) | payer MEDICAID, SELFPAY ==
[2019-01-26 11:38] VITALS: BMI 23.0
[2019-05-09 17:34] LABS: Albumin, Serum 3.8 g/dL (3.2-5.0); BUN 14 mg/dL (7-18); BUN/Creat Ratio 11.5 RATIO (10-20); Calcium,Total 8.8 mg/dL (8.5-10.1); Chloride 107 mmol/L (98-107); Creatinine, Serum 1.22 mg/dL (0.70-1.30); EST Glomerular Filtration Rate 64 mL/min (>60); Est Glom Filt Rate - Afr Amer 77 mL/min (>60); Glucose 109 mg/dL (74-106); Phosphorus 2.9 mg/dL (2.5-4.9); Potassium 4.4 mmol/L (3.5-5.1); Sodium Level 137 mmol/L (136-145)
[2019-05-09 17:40] LABS: Protein, Urine (Random) 56.1 mg/dL (<11.9); Protein:Creat Ratio 468 mg/g CRE (0-200)
== END ==
PROVIDERS: Referring Provider Internal Medicine Nephrology; Visit Provider Internal Medicine Nephrology
DX: N17.9 Acute kidney failure, unspecified (principal); E87.1 Hypo-osmolality and hyponatremia
CPT/HCPCS: 36415; 80069; 82570; 84156

== ENCOUNTER → 2019-07-17 12:42 | Outpatient (CLI) | payer MEDICAID, SELFPAY ==
[2019-01-26 11:38] VITALS: BMI 23.0
[2019-07-17 13:17] VITALS: PULSE 106; PULSE 116; PULSE 121; PULSE 123; PULSE 125; PULSE 126; PULSE 127; PULSE 98; O2SAT 93; O2SAT 94; O2SAT 95
--- NOTE | 2019-07-17 16:21 | PCM.PSN.6M ---
PSN 6 Minute Walk Test - 6 Minute Walk Test 6 Minute Walk Test: 6 Minute Walk Test PSN:6-Minute Walk Test Start: 07/17/19 13:17 Freq: Status: Active Protocol: RESP.6MINW Document 07/17/19 13:17 FR (Rec: 07/17/19 13:23 FR [id number]) 6 Minute Walk Test Date Performed 07/17/19 Time Performed 13:00 Height 5 ft 11 in Weight: 76.657 kg Weight in Pounds 169.[address]: Cr Lopez Assistive device used: None Pre-test Oxygen Delivery Method Room Air Pulse Ox (%) 94 Pulse Rate (60-100 beats/min) 98 Dyspnea Lena Scale (0-10) 5 Exertion Lena Scale (6-20) 11 1st minute Oxygen Delivery Method Room Air Pulse Ox (%) 94 Pulse Rate (60-100 beats/min) 116 H 2nd minute Oxygen Delivery Method Room Air Pulse Ox (%) 94 Pulse Rate (60-100 beats/min) 121 H 3rd minute Oxygen Delivery Method Room Air Pulse Ox (%) 94 Pulse Rate (60-100 beats/min) 123 H 4th minute Oxygen Delivery Method Room Air Pulse Ox (%) 93 Pulse Rate (60-100 beats/min) 125 H 5th minute Oxygen Delivery Method Room Air Pulse Ox (%) 94 Pulse Rate (60-100 beats/min) 126 H 6th minute Oxygen Delivery Method Room Air Pulse Ox (%) 94 Pulse Rate (60-100 beats/min) 127 H Dyspnea Lena Scale (0-10) 6 Exertion Lena Scale (6-20) 12 Post-test Oxygen Delivery Method Room Air Pulse Ox (%) 95 Pulse Rate (60-100 beats/min) 106 H Full Laps Walked 28 Partial Lap, Number of Tiles Walked 20 Total Distance Walked (ft) 1672 - Interpretation Interpretation: The patient was able to ambulate 1672 feet over the course of 6 minutes on room air with no assistive devices or breaks. The patient did not experience any significant desaturation, but did have tachycardia as high as 127 bpm, indicating a cardiovascular limitation exercise tolerance. - Recommendations Recommendations: No supplemental oxygen is indicated at this time.
== END ==
PROVIDERS: Referring Provider Internal Medicine Critical Care Medicine; Visit Provider Internal Medicine Critical Care Medicine
DX: J44.9 Chronic obstructive pulmonary disease, unspecified (principal)
CPT/HCPCS: 94618

== ENCOUNTER → 2019-11-15 16:34 | Outpatient (CLI) | payer MEDICAID, SELFPAY ==
[2019-01-26 11:38] VITALS: BMI 23.0
[2019-11-15 17:52] LABS: Absolute Lymphocyte Count 2.15 X10^3/uL (0.83-4.51); Absolute Neutrophil Count 3.4 X10^3/uL (2.0-7.7); Basophil# 0.03 X10^3/uL; Basophil% 0.5 % (0-1); Eosinophil# 0.32 X10^3/uL; Hematocrit 40.8 % (40-54); Hemoglobin 14.2 g/dL (13.0-16.5); Lymphocyte # 2.15 X10^3/ul (4.0); Lymphocyte % 33.4 % (19-41); Mean Corp Hgb Conc 34.8 g/dL (32-36); Mean Corpuscular Hgb 34.1 pg (27.0-32.0); Mean Corpuscular Volume 98.1 fL (80-94); Mean Platelet Vol. 9.7 fl (6.2-12.0); Monocyte# 0.57 X10^3/uL; Monocyte% 8.9 % (0-10); NRBC Flagged by Analyzer 0 % (0-5); Neutrophil # 3.35 X10^3/uL (2.7-7.7); Neutrophil % 51.9 % (47-70); Platelet Count 237 K/mm3 (150-450); RBC Distribution Width CV 12.6 % (11.6-14.6); RBC Distribution Width SD 45.1 fl (35.1-43.9); Red Blood Count 4.16 M/mm3 (4.6-6.2); White Blood Count 6.4 K/mm3 (4.4-11.0)
[2019-11-15 18:40] LABS: Vitamin D,25 Hydroxy 14.7 ng/mL
[2019-11-15 18:52] LABS: ALB/GLOB Ratio 0.9 RATIO (0.9-2.4); AST(SGOT) 35 U/L (15-37); Alanine Aminotransfer ALT/SGPT 29 U/L (16-61); Albumin, Serum 3.8 g/dL (3.2-5.0); Alkaline Phosphatase 134 U/L (45-117); Anion Gap 8 (5-15); BUN 17 mg/dL (7-18); Calcium,Total 8.7 mg/dL (8.5-10.1); Chloride 107 mmol/L (98-107); Cholesterol 249 mg/dL (200); Creatinine, Serum 1.55 mg/dL (0.70-1.30); EST Glomerular Filtration Rate 48 mL/min (>60); Est Glom Filt Rate - Afr Amer 59 mL/min (>60); Globulin 4.2 g/dL (2.2-4.2); Glucose 96 mg/dL (74-106); High Density Lipoprotein 62 mg/dL; Potassium 4.2 mmol/L (3.5-5.1); Sodium Level 137 mmol/L (136-145); Triglycerides 224 mg/dL; Very Low Density Lipoprotein 45 mg/dL (5-40)
== END ==
PROVIDERS: Nurse Practitioner Family; Referring Provider Internal Medicine Nephrology; Visit Provider Internal Medicine Nephrology
DX: J44.9 Chronic obstructive pulmonary disease, unspecified (principal); E78.5 Hyperlipidemia, unspecified; N18.9 Chronic kidney disease, unspecified
CPT/HCPCS: 36415; 80053; 80061; 82306; 85025

== ENCOUNTER → 2020-01-07 12:36 | Outpatient (CLI) | payer MEDICAID, SELFPAY ==
[2019-01-26 11:38] VITALS: BMI 23.0
[2020-01-07 13:31] LABS: Protein, Urine (Random) 78.8 mg/dL (<11.9); Protein:Creat Ratio 845 mg/g CRE (0-200)
[2020-01-07 13:47] LABS: Anion Gap 6 (5-15); BUN 16 mg/dL (7-18); BUN/Creat Ratio 11.8 RATIO (10-20); Calcium,Total 8.6 mg/dL (8.5-10.1); Chloride 103 mmol/L (98-107); Creatinine, Serum 1.36 mg/dL (0.70-1.30); EST Glomerular Filtration Rate 56 mL/min (>60); Est Glom Filt Rate - Afr Amer 68 mL/min (>60); Glucose 93 mg/dL (74-106); Potassium 4.8 mmol/L (3.5-5.1); Sodium Level 136 mmol/L (136-145)
== END ==
PROVIDERS: Referring Provider Internal Medicine Nephrology; Visit Provider Internal Medicine Nephrology
DX: N18.31 Chronic kidney disease, stage 3a (principal)
CPT/HCPCS: 36415; 80048; 82570; 84156

== ENCOUNTER → 2020-02-01 10:50 | Outpatient (CLI) | payer MEDICAID, SELFPAY ==
[2019-01-26 11:38] VITALS: BMI 23.0
--- NOTE | 2020-02-01 16:06 | PFTCOMP ---
COMPLETE PULMONARY FUNCTION TEST INTERPRETATION Brief HPI: Patient is a 64 year old -Luxembourger male, currently under the care of myself, who presents to [facility] for complete pulmonary function tests secondary to diagnosis of COPD. Respiratory therapist reports good effort and reproducible results. Interpretation: Forced expiration spirometry shows a moderately severe large airways obstructive ventilatory defect with an FEV1 of 50% predicted. There is a significant bronchodilator response in FVC by strict ATS criteria. Spirograms are of good quality and plateau slowly, indicating slowly emptying areas of the lungs. The respiratory flow volume loop shows decreased expiratory flow rates at all lung volumes consistent with airway obstruction. Lung volumes by body plethysmography show a normal total lung capacity at 7.51 L, 109% predicted. FRC and RV are elevated out of proportion. Lung volume measurements are consistent with air-trapping. Diffusion capacity by carbon monoxide is decreased at 58% predicted. The airway resistance is elevated. Compared to previous pulmonary function tests from 11/29/2017, there is been a significant improvement in FVC by 23%. Impression: Partial reversible moderately severe large airways obstructive ventilatory defect with a symmetric reduction diffusion capacity, resulting in air trapping. Increase in FVC compared to previous study may be secondary to use of Symbicort 12 hours prior to testing
== END ==
PROVIDERS: Referring Provider Internal Medicine Critical Care Medicine; Visit Provider Internal Medicine Critical Care Medicine
DX: J44.9 Chronic obstructive pulmonary disease, unspecified (principal)
CPT/HCPCS: 94060; 94726; 94729

== ENCOUNTER → 2020-02-05 11:38 | Outpatient (CLI) | payer MEDICAID, SELFPAY ==
[2019-01-26 11:38] VITALS: BMI 23.0
[2020-02-05 12:13] VITALS: PULSE 102; PULSE 105; PULSE 109; PULSE 112; PULSE 116; PULSE 117; PULSE 123; PULSE 98; O2SAT 94; O2SAT 95
--- NOTE | 2020-02-05 16:06 | PCM.PSN.6M ---
PSN 6 Minute Walk Test - 6 Minute Walk Test 6 Minute Walk Test: 6 Minute Walk Test PSN:6-Minute Walk Test Start: 02/05/20 12:12 Freq: Status: Active Protocol: RESP.6MINW Document 02/05/20 12:13 RANDY (Rec: 02/05/20 12:16 RANDY [id number]) 6 Minute Walk Test Date Performed 02/05/20 Time Performed 12:00 Height 5 ft 11 in Weight: 74.843 kg Weight in Pounds 165.[address]: Cr Lopez Assistive device used: None Pre-test Oxygen Delivery Method Room Air Pulse Ox (%) 95 Pulse Rate (60-100 beats/min) 98 Dyspnea Lena Scale (0-10) 4 Exertion Lena Scale (6-20) 6 1st minute Oxygen Delivery Method Room Air Pulse Ox (%) 95 Pulse Rate (60-100 beats/min) 109 H 2nd minute Oxygen Delivery Method Room Air Pulse Ox (%) 94 Pulse Rate (60-100 beats/min) 112 H 3rd minute Oxygen Delivery Method Room Air Pulse Ox (%) 94 Pulse Rate (60-100 beats/min) 117 H 4th minute Oxygen Delivery Method Room Air Pulse Ox (%) 94 Pulse Rate (60-100 beats/min) 116 H 5th minute Oxygen Delivery Method Room Air Pulse Ox (%) 95 Pulse Rate (60-100 beats/min) 123 H 6th minute Oxygen Delivery Method Room Air Pulse Ox (%) 95 Pulse Rate (60-100 beats/min) 105 H Post-test Oxygen Delivery Method Room Air Pulse Ox (%) 95 Pulse Rate (60-100 beats/min) 102 H Dyspnea Lena Scale (0-10) 5 Exertion Lena Scale (6-20) 11 Full Laps Walked 23 Partial Lap, Number of Tiles Walked 40 Total Distance Walked (ft) 1397 - Interpretation Interpretation: The patient was able to travel 1397 feet over the course of 6 minutes on room air with no assistive devices or breaks. No significant desaturation was noted, but patient did have tachycardia as high as 123 bpm. These findings are consistent with deconditioning. - Recommendations Recommendations: No supplemental oxygen is indicated at this time.
== END ==
PROVIDERS: Referring Provider Internal Medicine Critical Care Medicine; Visit Provider Internal Medicine Critical Care Medicine
DX: J44.9 Chronic obstructive pulmonary disease, unspecified (principal)
CPT/HCPCS: 94618

== ENCOUNTER → 2020-04-22 11:15 | Outpatient (CLI) | payer MEDICAID, SELFPAY ==
[2020-04-22 10:20] VITALS: BMI 24.1
[2020-04-22 11:48] LABS: Absolute Lymphocyte Count 2.71 X10^3/uL (0.83-4.51); Absolute Neutrophil Count 2.8 X10^3/uL (2.0-7.7); Basophil# 0.03 X10^3/uL; Basophil% 0.5 % (0-1); Eosinophil# 0.32 X10^3/uL; Hematocrit 41.5 % (40-54); Hemoglobin 14.4 g/dL (13.0-16.5); Lymphocyte # 2.71 X10^3/ul (4.0); Lymphocyte % 42.4 % (19-41); Mean Corp Hgb Conc 34.7 g/dL (32-36); Mean Corpuscular Hgb 33.7 pg (27.0-32.0); Mean Corpuscular Volume 97.2 fL (80-94); Mean Platelet Vol. 9.4 fl (6.2-12.0); Monocyte# 0.56 X10^3/uL; Monocyte% 8.8 % (0-10); NRBC Flagged by Analyzer 0 % (0-5); Neutrophil # 2.76 X10^3/uL (2.7-7.7); Neutrophil % 43.1 % (47-70); Platelet Count 248 K/mm3 (150-450); RBC Distribution Width CV 12.3 % (11.6-14.6); RBC Distribution Width SD 43.8 fl (35.1-43.9); Red Blood Count 4.27 M/mm3 (4.6-6.2); White Blood Count 6.4 K/mm3 (4.4-11.0)
[2020-04-26 16:08] LABS: Cat Hair/Dander, Standard 0.28 kU/L (Class 0/I); D farinae Mite 8.25 kU/L (Class IV); D pteronyssinus 7.32 kU/L (Class IV); Dog Epithelia 1.25 kU/L (Class II)
[2020-04-27 00:25] LABS: Mouse Urine 0.28 kU/L (Class 0/I)
[2020-04-27 09:36] LABS: Aspirgillus flavus Negative (Neg:<1:1); Aspirgillus fumigatus Negative (Neg:<1:1); Aspirgillus niger Negative (Neg:<1:1); Cytoplasmic Ab (C-ANCA) <1:20 titer (Neg:<1:20)
[2020-04-27 13:29] LABS: Immunoglobulin E 942 IU/mL (6-495); Perinuclear Ab (P-ANCA) <1:20 titer (Neg:<1:20)
== END ==
PROVIDERS: Referring Provider Nurse Practitioner Acute Care; Visit Provider Nurse Practitioner Acute Care
DX: J45.909 Unspecified asthma, uncomplicated (principal)
CPT/HCPCS: 36415; 82785; 85025; 86003; 86256; 86606

== ENCOUNTER 2020-06-05 09:40 | Emergency (ER) | payer MEDICAID, SELFPAY ==
[2020-05-27 08:55] VITALS: BMI 23.5
[2020-06-05 09:41] VITALS: BP 132/92; PULSE 81; RESP 17; TEMP 36.4; O2SAT 94; BMI 28.4
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
[2020-06-05 09:50] VITALS: TEMP 36.4
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
[2020-06-05] MEDS: Morphine 4 MG/ML Syringe IV (09:56)
[2020-06-05] MEDS: Ondansetron 4 MG/2 ML Vial IV (09:56)
[2020-06-05 10:38] LABS: Absolute Lymphocyte Count 2.35 X10^3/uL (0.83-4.51); Absolute Neutrophil Count 5.8 X10^3/uL (2.0-7.7); Basophil# 0.02 X10^3/uL; Basophil% 0.2 % (0-1); Eosinophil# 0.34 X10^3/uL; Eosinophils% 3.7 % (0-5); Hematocrit 36.9 % (40-54); Hemoglobin 12.8 g/dL (13.0-16.5); Lymphocyte # 2.35 X10^3/ul (4.0); Lymphocyte % 25.7 % (19-41); Mean Corp Hgb Conc 34.7 g/dL (32-36); Mean Corpuscular Volume 98.1 fL (80-94); Mean Platelet Vol. 9.3 fl (6.2-12.0); Monocyte# 0.58 X10^3/uL; Monocyte% 6.3 % (0-10); NRBC Flagged by Analyzer 0 % (0-5); Neutrophil # 5.82 X10^3/uL (2.7-7.7); Neutrophil % 63.7 % (47-70); Platelet Count 274 K/mm3 (150-450); RBC Distribution Width SD 43.6 fl (35.1-43.9); Red Blood Count 3.76 M/mm3 (4.6-6.2); White Blood Count 9.2 K/mm3 (4.4-11.0)
[2020-06-05 10:53] LABS: AST(SGOT) 26 U/L (15-37); Alanine Aminotransfer ALT/SGPT 25 U/L (16-61); Albumin, Serum 3.4 g/dL (3.2-5.0); Alkaline Phosphatase 97 U/L (45-117); Anion Gap 5 (5-15); BUN 15 mg/dL (7-18); BUN/Creat Ratio 9.9 RATIO (10-20); Bilirubin, Direct 0.06 mg/dL (0.00-0.30); Calcium,Total 8.5 mg/dL (8.5-10.1); Chloride 105 mmol/L (98-107); Creatinine, Serum 1.51 mg/dL (0.70-1.30); EST Glomerular Filtration Rate 50 mL/min (>60); Est Glom Filt Rate - Afr Amer 60 mL/min (>60); Estimated Creatinine Clearance 53.33 ml/min; Globulin 3.8 g/dL (2.2-4.2); Glucose 106 mg/dL (74-106); Potassium 3.8 mmol/L (3.5-5.1); Protein, Total 7.2 g/dL (6.4-8.2); Sodium Level 137 mmol/L (136-145)
[2020-06-05 10:56] LABS: International Normalized Ratio 0.9
[2020-06-05 10:57] LABS: Partial Thromboplast Time 25.1 Seconds (24.1-36.2)
--- NOTE | 2020-06-05 11:00 | NURSING ---
CALLED [facility] FOR TRANSFER
[2020-06-05 11:09] VITALS: BP 124/86; PULSE 96; RESP 22; O2SAT 97
--- NOTE | 2020-06-05 11:24 | NURSING ---
1110 CALLED [facility], ETA IS 90 MIN
[2020-06-05 11:34] LABS: Amphetamine Urine VISTA NEGATIVE (<1000 ng/mL); Barbiturate Urine VISTA NEGATIVE (< 200 ng/mL); Benzodiazepine Urine VISTA NEGATIVE (< 200 ng/mL); Cocaine Urine VISTA POSITIVE (< 300 ng/mL); Ecstacy Urine VISTA NEGATIVE (< 500 ng/mL); Methadone Urine VISTA NEGATIVE (< 300 ng/mL); PCP Urine VISTA NEGATIVE (< 25 ng/mL); THC Urine VISTA NEGATIVE (< 50 ng/mL); Vista UDS pH Range 6
[2020-06-05] MEDS: Cefazolin 1 GM/50 ML BAG IV (11:41)
[2020-06-05] MEDS: Diphth,Pertuss(Acell),Tet Vac 0.5 ML Vial IM (11:46)
[2020-06-05] MEDS: Lidocaine 1% (20 ml mdv) 20 ML Vial INFILT (11:47)
[2020-06-05 12:25] VITALS: BP 100/59; PULSE 91; RESP 21; O2SAT 94
== END 2020-06-05 12:52 | disposition short-term general hospital (02) ==
PROVIDERS: Emergency Provider Emergency Medicine
DX: S08.0XXA Avulsion of scalp, initial encounter (principal); V89.2XXA Person injured in unspecified motor-vehicle accident, traffic, initial encounter; Y93.89 Activity, other specified; Y92.410 Unspecified street and highway as the place of occurrence of the external cause; Y99.9 Unspecified external cause status; J44.9 Chronic obstructive pulmonary disease, unspecified; N40.0 Benign prostatic hyperplasia without lower urinary tract symptoms; Z90.5 Acquired absence of kidney; Z23 Encounter for immunization
CPT/HCPCS: 36415; 70450; 71260; 72125; 74177; 80048; 80076; 80307; 82077; 85025; 85610; 85730; 90715; 93005; 96365; 96375; 99285; J7030; Q9967; J2405

== ENCOUNTER → 2020-06-24 17:54 | Outpatient (CLI) | payer MEDICAID, SELFPAY ==
[2020-06-05 09:41] VITALS: BMI 28.4
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
== END ==
PROVIDERS: Referring Provider Neurological Surgery; Visit Provider Neurological Surgery
DX: S12.9XXA Fracture of neck, unspecified, initial encounter (principal)
CPT/HCPCS: 72141

== ENCOUNTER → 2020-07-07 16:55 | Outpatient (CLI) | payer MEDICAID, SELFPAY ==
[2020-07-07 17:14] LABS: Hematocrit 36.1 % (40-54); Hemoglobin 11.9 g/dL (13.0-16.5); Mean Corpuscular Hgb 33.3 pg (27.0-32.0); Mean Corpuscular Volume 101.1 fL (80-94); Mean Platelet Vol. 9.3 fl (6.2-12.0); Platelet Count 241 K/mm3 (150-450); RBC Distribution Width CV 13.5 % (11.6-14.6); RBC Distribution Width SD 50.5 fl (35.1-43.9); Red Blood Count 3.57 M/mm3 (4.6-6.2); White Blood Count 10.5 K/mm3 (4.4-11.0)
[2020-07-07 17:53] LABS: Protein, Urine (Random) 114.6 mg/dL (<11.9); Protein:Creat Ratio 381 mg/g CRE (0-200)
[2020-07-07 18:13] LABS: ALB/GLOB Ratio 0.7 RATIO (0.9-2.4); AST(SGOT) 10 U/L (15-37); Alanine Aminotransfer ALT/SGPT 18 U/L (16-61); Albumin, Serum 3.3 g/dL (3.2-5.0); Alkaline Phosphatase 109 U/L (45-117); Anion Gap 6 (5-15); BUN 14 mg/dL (7-18); BUN/Creat Ratio 8.8 RATIO (10-20); Chloride 101 mmol/L (98-107); Creatinine, Serum 1.59 mg/dL (0.70-1.30); EST Glomerular Filtration Rate 47 mL/min (>60); Est Glom Filt Rate - Afr Amer 57 mL/min (>60); Globulin 4.5 g/dL (2.2-4.2); Glucose 99 mg/dL (74-106); Potassium 4.3 mmol/L (3.5-5.1); Protein, Total 7.8 g/dL (6.4-8.2); Sodium Level 133 mmol/L (136-145)
== END ==
PROVIDERS: Referring Provider Internal Medicine Nephrology; Visit Provider Internal Medicine Nephrology
DX: N18.31 Chronic kidney disease, stage 3a (principal)
CPT/HCPCS: 36415; 80053; 82570; 84156; 85027

== ENCOUNTER → 2020-10-15 17:18 | Outpatient (CLI) | payer MEDICAID, SELFPAY ==
[2020-09-29 11:31] VITALS: BMI 23.5
[2020-10-15 17:34] LABS: Absolute Lymphocyte Count 2.83 X10^3/uL (0.83-4.51); Absolute Neutrophil Count 7.5 X10^3/uL (2.0-7.7); Basophil# 0.02 X10^3/uL; Basophil% 0.2 % (0-1); Eosinophil# 0.12 X10^3/uL; Hematocrit 39.1 % (40-54); Hemoglobin 13.4 g/dL (13.0-16.5); Lymphocyte # 2.83 X10^3/ul (0.83-4.51); Lymphocyte % 24.7 % (19-41); Mean Corp Hgb Conc 34.3 g/dL (32-36); Mean Corpuscular Hgb 32.1 pg (27.0-32.0); Mean Corpuscular Volume 93.8 fL (80-94); Mean Platelet Vol. 9.2 fl (6.2-12.0); Monocyte# 0.96 X10^3/uL; Monocyte% 8.4 % (0-10); NRBC Flagged by Analyzer 0 % (0-5); Neutrophil # 7.52 X10^3/uL (2.7-7.7); Neutrophil % 65.4 % (47-70); Platelet Count 247 K/mm3 (150-450); RBC Distribution Width CV 13.2 % (11.6-14.6); RBC Distribution Width SD 44.7 fl (35.1-43.9); Red Blood Count 4.17 M/mm3 (4.6-6.2); White Blood Count 11.5 K/mm3 (4.4-11.0)
[2020-10-15 18:12] LABS: Iron 97 ug/dL (65-175); Iron Binding Capacity,Total 434 ug/dL (250-450)
[2020-10-15 18:25] LABS: Vitamin B12 331 pg/mL (211-911)
== END ==
PROVIDERS: Referring Provider Nurse Practitioner Adult Health; Visit Provider Nurse Practitioner Adult Health
DX: D64.9 Anemia, unspecified (principal)
CPT/HCPCS: 36415; 82607; 83540; 83550; 85025

== ENCOUNTER → 2020-10-20 17:39 | Outpatient (CLI) | payer MEDICAID, SELFPAY ==
[2020-09-29 11:31] VITALS: BMI 23.5
== END ==
PROVIDERS: Referring Provider Nurse Practitioner Adult Health; Visit Provider Nurse Practitioner Adult Health
DX: D64.9 Anemia, unspecified (principal)
CPT/HCPCS: 82274

== ENCOUNTER → 2021-01-06 16:00 | Outpatient (CLI) | payer MEDICARE, MEDICAID, SELFPAY ==
[2021-01-06 17:41] LABS: Hematocrit 38.7 % (40-54); Hemoglobin 13.4 g/dL (13.0-16.5); Mean Corp Hgb Conc 34.6 g/dL (32-36); Mean Corpuscular Hgb 33.3 pg (27.0-32.0); Platelet Count 230 K/mm3 (150-450); RBC Distribution Width CV 12.7 % (11.6-14.6); RBC Distribution Width SD 45.1 fl (35.1-43.9); Red Blood Count 4.03 M/mm3 (4.6-6.2); White Blood Count 6.6 K/mm3 (4.4-11.0)
[2021-01-06 17:59] LABS: Protein, Urine (Random) 202.7 mg/dL (<11.9); Protein:Creat Ratio 909 mg/g CRE (0-200)
[2021-01-06 18:02] LABS: Anion Gap 5 (5-15); BUN 11 mg/dL (7-18); Calcium,Total 8.6 mg/dL (8.5-10.1); Chloride 106 mmol/L (98-107); Creatinine, Serum 1.38 mg/dL (0.70-1.30); EST Glomerular Filtration Rate 55 mL/min (>60); Est Glom Filt Rate - Afr Amer 67 mL/min (>60); Glucose 103 mg/dL (74-106); Potassium 4.8 mmol/L (3.5-5.1); Sodium Level 135 mmol/L (136-145)
[2021-01-06 18:14] LABS: Vitamin D,25 Hydroxy 12.4 ng/mL
== END ==
PROVIDERS: Visit Provider Internal Medicine Nephrology
DX: N18.31 Chronic kidney disease, stage 3a (principal)
CPT/HCPCS: 36415; 80048; 82306; 82570; 83970; 84156; 85027

== ENCOUNTER 2021-06-05 14:04 | Outpatient (CLI) | payer MEDICARE, MEDICAID, SELFPAY ==
--- NOTE | 2021-06-05 14:18 | CT_ITS ---
STUDY: LOW DOSE CT LUNG CANCER SCREENING REASON FOR EXAM: Male, 66 years old. Smoker and gt; 40 pack years. RADIATION DOSAGE (If Supplied By Facility): CTDIvol = ( 3.02 ) mGy, DLP = ( 116.26 ) mGycm TECHNIQUE: No contrast was administered. Low dose technique was utilized (average mAS-38 and kVp 120). 1.25 mm axial source images with a slice interval of 1.25-mm were reconstructed in lung windows. 2.5 mm axial source images with a slice interval of 2.5-mm were reconstructed in lung windows. 5.0 mm axial source images with a slice interval of 5.0-mm were reconstructed in soft tissue windows. Nodule measured using lung windows on PACS and/or independent workstation with automated measurement of minimum and maximum diameter. Nodule measurement reported as average diameter rounded to the nearest whole number. Growth is defined as an increase ins size of greater than 1.5 mm. COMPARISON: Comparison is made with prior study dated 06/05/2020. NODULES: Stable 3 mm calcified granuloma in the peripheral lateral aspect of the right upper lobe as seen on axial image #97. No suspicious nodules are seen. Emphysema: Hyperinflation. Emphysematous changes more prominent in the upper lobes. Stable mild degree of bronchiectasis in the lingular segment of the left upper lobe as well as the right middle lobe. Endobronchial lesion: None Aorta: Mild atherosclerotic plaque formation of the aortic arch. Coronary arteries: Minimal coronary artery calcification. Mediastinal nodes: Calcified right hilar lymph nodes. Other chest and abdominal findings: CT/Low Dose CT Lung Screening IMPRESSION: Lung-RADS category 2 - Continue annual screening with LDCT in 12 months. IMPORTANT NOTES FOR USE: ACR Lung-RADS Version 1.1 Assessment Categories Release Date: 2018 Category: Coded 0-4 bases on nodule(s) with highest degree of suspicion. Negative screen is defined as categories 1 and 2; a positive screen is defined as categories 3 and 4. Category 3 and 4A nodules that are unchanged on interval CT should be coded as category 2, and individuals returned to screening in 12 months. Category 4X: Category 3 or 4 nodules with additional imaging findings that increase the suspicion of lung cancer, such as spiculation, GGN that doubles in size in 1 year, enlarged lymph notes, etc. Category Modifiers: S (significant finding unrelated to lung cancer) Electronically Signed: Herb Beal MD at 14:37 EDT ,
== END 2021-06-05 23:59 | disposition home or self-care (01) ==
PROVIDERS: Referring Provider Nurse Practitioner Acute Care; Visit Provider Nurse Practitioner Acute Care
DX: Z87.891 Personal history of nicotine dependence (principal)
CPT/HCPCS: 71271

== ENCOUNTER → 2021-07-07 | Outpatient (CLI) | payer MEDICARE, MEDICAID, SELFPAY ==
[2021-07-07 12:58] LABS: Protein, Urine (Random) 114.5 mg/dL (<11.9); Protein:Creat Ratio 590 mg/g CRE (0-200)
[2021-07-07 13:12] LABS: Anion Gap 6 (5-15); BUN 17 mg/dL (7-18); BUN/Creat Ratio 11.3 RATIO (10-20); Calcium,Total 9.3 mg/dL (8.5-10.1); Chloride 104 mmol/L (98-107); Creatinine, Serum 1.51 mg/dL (0.70-1.30); EST Glomerular Filtration Rate 50 mL/min (>60); Est Glom Filt Rate - Afr Amer 60 mL/min (>60); Glucose 101 mg/dL (74-106); Sodium Level 139 mmol/L (136-145)
== END | disposition home or self-care (01) ==
LOC: LAB 12:13
PROVIDERS: Referring Provider Internal Medicine Nephrology; Visit Provider Internal Medicine Nephrology
DX: N18.31 Chronic kidney disease, stage 3a (principal)
CPT/HCPCS: 36415; 80048; 82570; 84156

== ENCOUNTER 2021-11-14 09:31 | Emergency (ER) | payer MEDICARE, MEDICAID, SELFPAY ==
[2021-11-14 09:32] VITALS: BP 156/98; PULSE 71; RESP 16; TEMP 36.6; O2SAT 100; BMI 24.4
--- NOTE | 2021-11-14 10:21 | EX.ED.DYSGE1 ---
HPI History of Present Illness Chief Complaint: Ear Problem Informant: patient Narrative Narrative: Patient presents with right ear swelling. He states he is not sure if he was bitten by something or not. It started getting red and he was pressure washing about a week ago. But he does not remember a bite or specific onset. He has been trying to pick at it and get it to drain but it has not. [facility] today. They poked a needle in it but did not get any drainage and referred him here. Although he was on prednisone a few weeks ago for a rash on his arm he is not on any immune modulators at this time. He is not on antibiotics nor does he have any allergies. Nothing really makes this better or worse. [facility] Medical History (Updated 11/14/21 @ 10:[address] Lew Rooney MD) Asthma Collapse of right lung Pleural effusion Seasonal allergies Stage 3 severe COPD by GOLD classification Home Medications albuterol sulfate 90 mcg/actuation aerosol inhaler 2 puff inhalation Q4H PRN PRN Sob &/Or Wheezing 09/20/18 [History Last Taken Unknown] fluticasone propionate 50 mcg/actuation nasal spray,suspension 1 spray NASAL BID 09/20/18 [History Last Taken 09/18/18] tamsulosin 0.4 mg capsule 0.4 mg PO DAILY ##30 10/07/18 [Rx Last Taken Unknown] azelastine 205.5 mcg (0.15 %) nasal spray 1 spray intranasal BID #30 mL 04/22/20 [Rx Last Taken Unknown] montelukast 10 mg tablet 10 mg PO QPM #30 tabs 04/22/20 [Rx Last Taken Unknown] nicotine 10 mg/mL nasal spray (Nicotrol NS) 2 spray intranasal Q10-60M PRN nicotine cravings #40 mL 09/15/21 [Rx Last Taken Unknown] fluticasone fur. 200 mcg-umeclid 62.5 mcg-vilant 25 mcg inhalat.powder (Trelegy Ellipta) 1 inh inhalation DAILY #60 ea 10/15/21 [Rx Last Taken Unknown] cephalexin 500 mg capsule 500 mg PO Q6 #40 caps 11/14/21 [Rx Last Taken Unknown] clobetasol-emollient 0.05 % topical cream 1 applic topical ONCE 11/14/21 [History Last Taken Unknown] doxycycline hyclate 100 mg capsule 100 mg PO 11/14/21 [History Last Taken Unknown] prednisone 20 mg tablet 20 mg PO 11/14/21 [History Last Taken Unknown] sulfamethoxazole 800 mg-trimethoprim 160 mg tablet (Bactrim DS) 1 tab PO BID #20 tabs 11/14/21 [Rx Last Taken Unknown] Allergy/AdvReac Type Severity Reaction Status Date / Time grass pollen Allergy Shortness Verified 11/14/21 09:34 of breath mold Allergy Shortness Verified 11/14/21 09:34 of breath Family History Brother Asthma Surgical History (Reviewed 11/14/21 @ : by Dr. Lew Rooney MD) H/O chest tube placement Social History (Reviewed 11/14/21 @ : by Dr. Lew Rooney MD) Smoking Status: Current every day smoker tobacco type: cigarettes Tobacco: How many years used: 40 alcohol intake: current ROS ROS ED Constitutional Constitutional ED: Denies chills, fever(s), subjective or sweats ENT ENT ED: Reports ear pain Respiratory/Chest Respiratory/Chest: Denies cough Gastrointestinal Gastrointestinal: Denies nausea or vomiting Integumentary Reports other Details: See history of present illness. Neurologic Neurologic: Denies headache(s) Hematologic/Lymphatic Hematologic/Lymphatic: Denies easy bleeding or easy bruising Allergic/Immunologic Allergic/Immunologic ED: Denies urticaria EXAM Physical Exam Const Vital Signs: 11/14/21 09:32 Temperature 98 F Temperature Source Temporal Pulse Rate 71 Respiratory Rate 16 Blood Pressure 156/98 H Blood Pressure Mean 117 Pulse Ox 100 Oxygen Delivery Method Room Air Positive well nourished and well developed Constitutional Narrative: Patient is wide-awake alert nontoxic in appearance. General Appearance ED: well developed and NAD HEENT Reports moist mucous membranes HEENT Narrative: Patient has erythema of the lower half of the auricle with some mild swelling that starts going toward the canal but not involving the canal. This is all on the right side. At the lower end of the ear, he has a firm swollen area that is about 1-1 and half centimeters around. There is a partially necrotic center. There is no active drainage. Below and behind the ear there is a little bit of lymphadenopathy. Eyes EOMs intact bilaterally Neck No no lymphadenopathy Neck Narrative: See above. Resp normal respiratory effort Neuro Sensorium / Orientation: alert Psych mental status grossly normal Skin Skin Narrative: See above exam MDM MDM MDM Narrative Medical decision making narrative: Procedure: Incision and drainage: We discussed risk benefits and options. Considering this is overlying cartilage, I think we need to try to get drainage if we can. The area was scrubbed and cleaned. It was anesthetized with about 0.5 cc of 1% lidocaine locally. Good anesthesia was achieved. I made a small incision right over the necrotic area. The 2 halves of this then really broke free from the skin. There was a remaining hole in the tissue. There was very thick purulent material in this. This was brought out. I opened up the area to make sure there was no other pocket. It was cleaned and irrigated out. It is too small to put a packing in. It decompressed and this was a very well-formed pocket. Its not bleeding. I do not think there is any way to provide compression to this. I discussed care of this wound and expected course. Patient understands that these infections of the ear can get bad. We will get him on antibiotics. If it is worsening, fevers, more swelling pain lymph node nausea or vomiting he should return. Discharge Plan Triage Chief Complaint: Ear Problem ED Provider: Lew Rooney Dx/Rx/DC Orders Clinical Impression: Abscess of right earlobe Instructions: ED Abscess Incision And Drainage Prescriptions: New cephalexin [cephalexin] 500 mg capsule 500 mg PO Q6 Qty: 40 0RF sulfamethoxazole-trimethoprim [Bactrim DS] 800-160 mg tablet 1 tab PO BID Qty: 20 0RF No Action montelukast 10 mg tablet 10 mg PO QPM Qty: 30 3RF azelastine 0.15 % (205.5 mcg) spray,non-aerosol 1 spray INTRANASAL BID Qty: 30 11RF Rx Instructions: administer into each nostril Nicotrol NS 10 mg/mL spray,non-aerosol 2 spray intranasal Q10-60M PRN (Reason: nicotine cravings) Qty: 40 1RF Rx Instructions: divide between both nostrils; do not exceed 5mg(10 sprays)/hr or 40mg(80 sprays)/24hr prednisone 20 mg tablet 20 mg PO doxycycline hyclate 100 mg capsule 100 mg PO clobetasol-emollient 0.05 % cream 1 applic topical ONCE albuterol sulfate 18 GM HFA aerosol inhaler 2 puff inhalation Q4H PRN PRN (Reason: Sob &/Or Wheezing) Label Comments: Inhale 2 puffs by mouth every 4 hours as needed fluticasone propionate 1 SPRAY spray,suspension 1 spray NASAL BID tamsulosin 0.4 MG capsule 0.4 mg PO DAILY Qty: 30 0RF Trelegy Ellipta 200-62.5-25 mcg blister with device 1 inh inhalation DAILY Qty: 60 6RF [facility]: [facility] Ho [Primary Care Provider] - 1-2 Days if not improving Disposition Disposition: Home, Self Care
[2021-11-14] MEDS: Smz/Tmp Ds Tablet 1 TABLET PO (10:44)
[2021-11-14] MEDS: Cephalexin 250 MG Capsule 500 MG PO (10:44)
== END 2021-11-14 10:46 | disposition home or self-care (01) ==
PROVIDERS: Emergency Provider Emergency Medicine; Visit Provider Emergency Medicine
DX: L02.91 Cutaneous abscess, unspecified (principal); J44.9 Chronic obstructive pulmonary disease, unspecified; F17.210 Nicotine dependence, cigarettes, uncomplicated; J45.909 Unspecified asthma, uncomplicated
CPT/HCPCS: 10060; 99283

== ENCOUNTER → 2021-11-16 | Outpatient (CLI) | payer MEDICARE, MEDICAID, SELFPAY ==
--- NOTE | 2021-11-16 13:42 | PFTCOMP_ITS ---
COMPLETE PULMONARY FUNCTION TEST INTERPRETATION Brief HPI: Patient is a 66 -year-old Black male, currently under the care of myself, who presents to [facility] for complete pulmonary function tests secondary to diagnosis of COPD. Respiratory therapist reports good effort and reproducible results. Interpretation: Forced expiration spirometry shows a moderately severe large airways obstructive ventilatory defect with an FEV1 of 52% predicted. There is no significant bronchodilator response by strict ATS criteria. Spirograms are of good quality and plateau slowly, indicating slowly emptying areas of the lungs. The respiratory flow volume loop shows decreased expiratory flow rates at all lung v olumes consistent with airway obstruction. Lung volumes by body plethysmography show a normal total lung capacity at 6.07 L, 87% predicted. All other lung volumes are within normal limits. Diffusion capacity by carbon monoxide is normal at 77% predicted. The airway resistance is elevated. Compared to previous pulmonary function tests from 02/01/20, there is been significant improvement in air trapping and DLCO. Impression: Irreversible moderately severe large airways obstructive ventilatory defect with relatively preserved lung volumes and DLCO.
== END | disposition home or self-care (01) ==
LOC: PSN 09:47
PROVIDERS: Referring Provider Internal Medicine Critical Care Medicine; Visit Provider Internal Medicine Critical Care Medicine
DX: J44.9 Chronic obstructive pulmonary disease, unspecified (principal)
CPT/HCPCS: 94060; 94726; 94729

== ENCOUNTER → 2021-11-20 | Outpatient (CLI) | payer MEDICARE, MEDICAID, SELFPAY ==
[2021-11-20 13:14] VITALS: PULSE 102; PULSE 104; PULSE 105; PULSE 106; PULSE 6; PULSE 98; O2SAT 95; O2SAT 96; O2SAT 97
--- NOTE | 2021-11-20 13:51 | PCM.PSN.6M ---
PSN 6 Minute Walk Test 6 Minute Walk Test 6 Minute Walk Test: 6 Minute Walk Test PSN:6-Minute Walk Test Start: 11/20/21 13:14 Freq: Status: Active Protocol: [id number].[id number] Document 11/20/21 13:14 RANDY (Rec: 11/20/21 13:17 RANDY [id number]) 6 Minute Walk Test Date Performed 11/20/21 Time Performed 12:30 Height 5 ft 11 in Weight: 79.379 kg Weight in Pounds 175.[address]: Cr Lopez Assistive device used: None Pre-test Oxygen Delivery Method Room Air Pulse Ox (%) 95 Pulse Rate (60-100 beats/min) 6 L Dyspnea Lena Scale (0-10) 4 Exertion Lena Scale (6-20) 6 1st minute Oxygen Delivery Method Room Air Pulse Ox (%) 95 Pulse Rate (60-100 beats/min) 102 H 2nd minute Oxygen Delivery Method Room Air Pulse Ox (%) 96 Pulse Rate (60-100 beats/min) 104 H 3rd minute Oxygen Delivery Method Room Air Pulse Ox (%) 97 Pulse Rate (60-100 beats/min) 104 H 4th minute Oxygen Delivery Method Room Air Pulse Ox (%) 95 Pulse Rate (60-100 beats/min) 105 H 5th minute Oxygen Delivery Method Room Air Pulse Ox (%) 96 Pulse Rate (60-100 beats/min) 106 H 6th minute Oxygen Delivery Method Room Air Pulse Ox (%) 96 Pulse Rate (60-100 beats/min) 106 H Dyspnea Lena Scale (0-10) 5 Exertion Lena Scale (6-20) 12 Post-test Oxygen Delivery Method Room Air Pulse Ox (%) 97 Pulse Rate (60-100 beats/min) 98 Full Laps Walked 14 Partial Lap, Number of Tiles Walked 0 Total Distance Walked (ft) 826 Interpretation Interpretation: The patient was able to ambulate 826 feet over the course of 6 minutes on room air with no assistive devices or breaks. The patient experienced no significant desaturation, but did have an elevated heart rate consistent with deconditioning. These findings are consistent with a musculoskeletal limitation exercise tolerance. Recommendations Recommendations: No supplemental oxygen is indicated at this time.
== END | disposition home or self-care (01) ==
LOC: PSN 12:54
PROVIDERS: Referring Provider Internal Medicine Critical Care Medicine; Visit Provider Internal Medicine Critical Care Medicine
DX: J44.9 Chronic obstructive pulmonary disease, unspecified (principal)
CPT/HCPCS: 94618

== ENCOUNTER → 2022-04-14 | Outpatient (CLI) | payer MEDICARE, MEDICAID, SELFPAY ==
[2022-04-14 11:15] LABS: Absolute Lymphocyte Count 2.43 X10^3/uL (0.83-4.51); Absolute Neutrophil Count 2.4 X10^3/uL (2.0-7.7); Basophil# 0.03 X10^3/uL; Basophil% 0.5 % (0-1); Eosinophil# 0.48 X10^3/uL; Hematocrit 40.3 % (40-54); Hemoglobin 13.6 g/dL (13.0-16.5); Lymphocyte # 2.43 X10^3/ul (0.83-4.51); Lymphocyte % 40.6 % (19-41); Mean Corp Hgb Conc 33.7 g/dL (32-36); Mean Corpuscular Hgb 31.2 pg (27.0-32.0); Mean Corpuscular Volume 92.4 fL (80-94); Mean Platelet Vol. 10.2 fl (6.2-12.0); Monocyte# 0.66 X10^3/uL; NRBC Flagged by Analyzer 0 % (0-5); Neutrophil # 2.38 X10^3/uL (2.7-7.7); Neutrophil % 39.9 % (47-70); Platelet Count 251 K/mm3 (150-450); RBC Distribution Width CV 12.8 % (11.6-14.6); RBC Distribution Width SD 43.3 fl (35.1-43.9); Red Blood Count 4.36 M/mm3 (4.6-6.2)
[2022-04-14 11:41] LABS: ALB/GLOB Ratio 0.9 RATIO (0.9-2.4); AST(SGOT) 23 U/L (15-37); Alanine Aminotransfer ALT/SGPT 25 U/L (16-61); Albumin, Serum 3.5 g/dL (3.2-5.0); Alkaline Phosphatase 126 U/L (45-117); Anion Gap 5 (5-15); BUN 24 mg/dL (7-18); BUN/Creat Ratio 16.7 RATIO (10-20); Calcium,Total 8.8 mg/dL (8.5-10.1); Chloride 105 mmol/L (98-107); Creatinine, Serum 1.44 mg/dL (0.70-1.30); EST Glomerular Filtration Rate 52 mL/min (>60); Est Glom Filt Rate - Afr Amer 63 mL/min (>60); Globulin 3.9 g/dL (2.2-4.2); Glucose 102 mg/dL (74-106); Hemoglobin A1c 5.8 % (3.8-5.6); Potassium 4.5 mmol/L (3.5-5.1); Protein, Total 7.4 g/dL (6.4-8.2); Sodium Level 138 mmol/L (136-145)
== END | disposition home or self-care (01) ==
DX: I10 Essential (primary) hypertension (principal); R73.03 Prediabetes
CPT/HCPCS: 36415; 80053; 82043; 82570; 83036; 85025

== ENCOUNTER → 2022-06-08 | Outpatient (CLI) | payer MEDICARE, MEDICAID, SELFPAY ==
--- NOTE | 2022-06-08 15:16 | CT_ITS ---
STUDY: LOW DOSE CT LUNG CANCER SCREENING REASON FOR EXAM: Male, 67 years old. Smoking and gt; 40 pack years RADIATION DOSAGE (If Supplied By Facility): CTDIvol = ( 3.02 ) mGy, DLP = ( 116.64 ) mGycm TECHNIQUE: No contrast was administered. Low dose technique was utilized (average mAS-38 and kVp 120). 1.25 mm axial source images with a slice interval of 1.25-mm were reconstructed in lung windows. 2.5 mm axial source images with a slice interval of 2.5-mm were reconstructed in lung windows. 5.0 mm axial source images with a slice interval of 5.0-mm were reconstructed in soft tissue windows. COMPARISON: Comparison is made with prior examination dated June 05, 2021. NODULES: Stable 3 cm calcified granuloma in the peripheral aspect of the right upper lobe as seen on axial image #85. Emphysema: Hyperinflation. Emphysematous changes with evidence of a centrilobular emphysema in the upper lobes. Mild scarring at the lung bases with evidence of bronchiectasis more prominent in the peripheral lateral aspect of the right lower lobe. Endobronchial lesion: Unremarkable Aorta: Minimal calcified plaques at the level of the aortic arch. CORONARY ARTERIES: Coronary artery calcification is seen. Heart: Unremarkable. Pulmonary artery: Unremarkable Mediastinal nodes: Unremarkable. Other chest and abdominal findings: CT/Low Dose CT Lung Screening IMPRESSION: Lung-RADS category 2 - Continue annual screening with LDCT in 12 months. IMPORTANT NOTES FOR USE: ACR Lung-RADS Version 1.1 Assessment Categories Release Date: 2018 Category: Coded 0-4 bases on nodule(s) with highest degree of suspicion. Negative screen is defined as categories 1 and 2; a positive screen is defined as categories 3 and 4. Category 3 and 4A nodules that are unchanged on interval CT should be coded as category 2, and individuals returned to screening in 12 months. Category 4X: Category 3 or 4 nodules with additional imaging findings that increase the suspicion of lung cancer, such as spiculation, GGN that doubles in size in 1 year, enlarged lymph notes, etc. Category Modifiers: S (significant finding unrelated to lung cancer) Electronically Signed: Herb Beal MD at 14:38 EDT ,
== END | disposition home or self-care (01) ==
LOC: CT 15:15
PROVIDERS: Referring Provider Nurse Practitioner Acute Care; Visit Provider Nurse Practitioner Acute Care
DX: F17.210 Nicotine dependence, cigarettes, uncomplicated (principal)
CPT/HCPCS: 71271

== ENCOUNTER → 2022-08-31 | Outpatient (CLI) | payer MEDICARE, MEDICAID, SELFPAY ==
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
--- NOTE | 2022-09-02 12:36 | STRESSREP_ITS ---
Stress Test Report Date: 09/02/2022 Procedure: Pharmacologic stress nuclear imaging study Indications: Coronary artery disease Consent: Per the patient Procedure: The patient underwent pharmacologic (Regadenoson 0.4mg ) evaluation with a peak heart rate of 102 beats per minute (65%predicted maximal heart rate) and a peak blood pressure of 124/84 mmHg. The baseline ECG demonstrated normal sinus rhythm with nonspecific ST changes. The peak pharmacologic ECG demonstrated no ischemic change. There were no cardiac dysrhythmias pretest, during pharmacologic infusion, or recovery. There was no complaint of chest discomfort during pharmacologic infusion or recovery. The patient was injected with 11 millicuries of technetium 99m Cardiolite and subsequently rest SPECT Cardiolite nuclear imaging was obtained in the horizontal long, vertical long, and short axis views. The patient underwent pharmacologic (Regadenoson) evaluation. The patient was injected with 33.4 millicuries of technetium 99m Cardiolite and subsequently stress SPECT Cardiolite nuclear imaging was obtained in the horizontal long, vertical long, and short axis views. A gated Cardiolite study at peak stress was obtained. The examination was stopped secondary to completion of protocol. Rest and stress SPECT Cardiolite nuclear imaging status post realignment, normalization, and attenuation correction demonstrate no fixed or reversible perfusion defects. There is end systolic thickening and brightening. The gated Cardiolite study demonstrates myocardial thickening and inward wall motion. The reported LVEF is 82%. Impression: 1. Pharmacologic (Regadenoson) evaluation 2. Peak pharmacologic ECG with no ischemic changes. 3. There were no cardiac dysrhythmias pretest, during pharmacologic infusion, or recovery. 5. No fixed or reversible perfusion defects. 6. The gated Cardiolite study reports an LVEF of 82%. This note was generated with [employer] software. It may contain incorrect words, spelling, and punctuation that were not noted in checking the note before signing.
== END | disposition home or self-care (01) ==
LOC: CVS 06:56
PROVIDERS: Referring Provider Internal Medicine Cardiovascular Disease; Visit Provider Internal Medicine Cardiovascular Disease
DX: R06.02 Shortness of breath (principal); F17.200 Nicotine dependence, unspecified, uncomplicated; I25.10 Atherosclerotic heart disease of native coronary artery without angina pectoris; I10 Essential (primary) hypertension
CPT/HCPCS: 78452; 93017; 93306; A9500; A4216; J2785

== ENCOUNTER → 2022-12-21 | Outpatient (CLI) | payer MEDICARE, MEDICAID, SELFPAY ==
[2022-12-21 13:02] LABS: Cholesterol 187 mg/dL (200); High Density Lipoprotein 43 mg/dL; Triglycerides 231 mg/dL; Very Low Density Lipoprotein 46 mg/dL (5-40)
== END | disposition home or self-care (01) ==
PROVIDERS: Referring Provider Internal Medicine Cardiovascular Disease; Visit Provider Internal Medicine Cardiovascular Disease
DX: I25.10 Atherosclerotic heart disease of native coronary artery without angina pectoris (principal); J44.9 Chronic obstructive pulmonary disease, unspecified; F17.200 Nicotine dependence, unspecified, uncomplicated
CPT/HCPCS: 36415; 80061

== ENCOUNTER → 2023-06-15 | Outpatient (CLI) | payer MEDICARE, MEDICAID, SELFPAY ==
--- NOTE | 2023-06-15 10:26 | CT_ITS ---
STUDY: LOW DOSE CT LUNG CANCER SCREENING REASON FOR EXAM: Male, 68 years old. Patient smoked 1 pack per day for 40 years. History of renal carcinoma. RADIATION DOSAGE (If Supplied By Facility): CTDIvol = ( 3.02 ) mGy, DLP = ( 117.39 ) mGycm TECHNIQUE: No contrast was administered. Low dose technique was utilized (average mAS-38 and kVp 120). 1.25 mm axial source images with a slice interval of 1.25-mm were reconstructed in lung windows. 2.5 mm axial source images with a slice interval of 2.5-mm were reconstructed in lung windows. 5.0 mm axial source images with a slice interval of 5.0-mm were reconstructed in soft tissue windows. COMPARISON: Comparison is made with prior examination dated June 08, 2022. NODULES: Stable 3 mm calcified granuloma in the peripheral aspect of the right upper lobe as seen on axial image #88. Emphysema: Hyperinflation. Emphysematous changes more prominent in the upper lobes. There is evidence of a bronchiectasis in the lower lobes more prominent in the right lower lobe with a focal scarring in the peripheral aspect of the right lower lobe. There is been essentially no change. Endobronchial lesion: None Aorta: Minimal calcific plaques at the level of the aortic arch. CORONARY ARTERIES: Coronary artery calcification is seen. Heart: Unremarkable Pulmonary artery: Unremarkable Mediastinal nodes: Small mediastinal lymph nodes. Other chest and abdominal findings: CT/Low Dose CT Lung Screening IMPRESSION: Lung-RADS category 2 - Continue annual screening with LDCT in 12 months. IMPORTANT NOTES FOR USE: ACR Lung-RADS Version 1.1 Assessment Categories Release Date: 2018 Category: Coded 0-4 bases on nodule(s) with highest degree of suspicion. Negative screen is defined as categories 1 and 2; a positive screen is defined as categories 3 and 4. Category 3 and 4A nodules that are unchanged on interval CT should be coded as category 2, and individuals returned to screening in 12 months. Category 4X: Category 3 or 4 nodules with additional imaging findings that increase the suspicion of lung cancer, such as spiculation, GGN that doubles in size in 1 year, enlarged lymph notes, etc. Category Modifiers: S (significant finding unrelated to lung cancer) Electronically Signed: Herb Beal MD at 15:09 EDT ,
== END | disposition home or self-care (01) ==
LOC: CT 10:23
PROVIDERS: Referring Provider Nurse Practitioner Acute Care; Visit Provider Nurse Practitioner Acute Care
DX: Z12.2 Encounter for screening for malignant neoplasm of respiratory organs (principal); F17.210 Nicotine dependence, cigarettes, uncomplicated
CPT/HCPCS: 71271

== ENCOUNTER → 2024-02-22 | Outpatient (CLI) | payer MEDICARE, MEDICAID, SELFPAY ==
[2024-02-22 12:51] LABS: Absolute Lymphocyte Count 1.54 X10^3/uL (0.83-4.51); Basophil# 0.02 X10^3/uL; Basophil% 0.4 % (0-1); Eosinophil# 0.39 X10^3/uL; Eosinophils% 8.6 % (0-5); Hematocrit 40.6 % (40-54); Hemoglobin 13.2 g/dL (13.0-16.5); Lymphocyte # 1.54 X10^3/ul (0.83-4.51); Lymphocyte % 34.1 % (19-41); Mean Corp Hgb Conc 32.5 g/dL (32-36); Mean Corpuscular Hgb 28.6 pg (27.0-32.0); Mean Corpuscular Volume 88.1 fL (80-94); Mean Platelet Vol. 9.5 fl (6.2-12.0); Monocyte# 0.53 X10^3/uL; Monocyte% 11.7 % (0-10); NRBC Flagged by Analyzer 0 % (0-5); Neutrophil # 2.03 X10^3/uL (2.7-7.7); Platelet Count 278 K/mm3 (150-450); RBC Distribution Width SD 48.2 fl (35.1-43.9); Red Blood Count 4.61 M/mm3 (4.6-6.2); White Blood Count 4.5 K/mm3 (4.4-11.0)
[2024-02-22 13:09] LABS: ALB/GLOB Ratio 0.8 RATIO (0.9-2.4); AST(SGOT) 25 U/L (15-37); Alanine Aminotransfer ALT/SGPT 29 U/L (16-61); Albumin, Serum 3.5 g/dL (3.2-5.0); Alkaline Phosphatase 135 U/L (45-117); Anion Gap 5 (5-15); BUN 23 mg/dL (7-18); Calcium,Total 8.7 mg/dL (8.5-10.1); Chloride 108 mmol/L (98-107); Cholesterol 172 mg/dL (200); Creatinine, Serum 1.53 mg/dL (0.70-1.30); EST Glomerular Filtration Rate 49 mL/min (>60); Est Glom Filt Rate - Afr Amer 59 mL/min (>60); Globulin 4.5 g/dL (2.2-4.2); Glucose 97 mg/dL (74-106); High Density Lipoprotein 41 mg/dL; PSA,Total - Annual Screen 6.03 ng/mL (0.00-4.00); Potassium 4.1 mmol/L (3.5-5.1); Sodium Level 135 mmol/L (136-145); Triglycerides 131 mg/dL; Very Low Density Lipoprotein 26 mg/dL (5-40)
[2024-02-26 12:07] LABS: Testosterone, % Free 2.54 % (1.50-4.20); Testosterone, Free 9.02 ng/dL (5.00-21.00); Testosterone, Total 355 ng/dL (264-916)
== END | disposition home or self-care (01) ==
LOC: VSLAB 11:28
DX: I10 Essential (primary) hypertension (principal); N52.9 Male erectile dysfunction, unspecified; Z12.5 Encounter for screening for malignant neoplasm of prostate; Z13.220 Encounter for screening for lipoid disorders
CPT/HCPCS: 36415; 80053; 80061; 84153; 84402; 84403; 84443; 85025; G0103

== ENCOUNTER → 2024-06-06 | Outpatient (CLI) | payer MEDICARE, SELFPAY | END | disposition home or self-care (01) | LOC: PSN 13:18 | PROVIDERS: Referring Provider Nurse Practitioner Acute Care; Visit Provider Nurse Practitioner Acute Care | DX: J44.9 Chronic obstructive pulmonary disease, unspecified (principal) | CPT/HCPCS: 94060; 94726; 94729 ==

== ENCOUNTER → 2024-06-26 | Outpatient (CLI) | payer MEDICARE, MEDICAID, SELFPAY ==
--- NOTE | 2024-06-26 14:20 | CT_ITS ---
PROCEDURE: LOW DOSE CT LUNG SCREENING 06/26/2024 REASON FOR EXAM: CURRENT SMOKER 1 pack per day for 40 years. History of renal cell carcinoma. TECHNIQUE: Low Dose CT Lung screening without contrast. Coronal and Sagittal reconstruction series were provided. One or more dose reduction techniques were used (e.g., Automated exposure control, adjustment of the mA and/or kV according to patient size, use of iterative reconstruction technique). REFERENCE LINK: [employer] ([employer] Lung-RADS RADIATION DOSE SUMMARY: CTDlvol: 3.02 mGy DLP: 117.02 mGycm COMPARISON: None. FINDINGS: PULMONARY NODULES: (Only nodules >3mm are reported) Nodules described below are on series 1 unless otherwise specified. Pulmonary Nodules: 1.7 cm x 1.8 cm pleural-based nodular density in the peripheral lateral aspect of the right lower lobe. This abuts the pleura. This may represent rounded atelectasis in the background of scarring in the right lower lobe although a neoplastic process can not be excluded. Correlation with a PET scan recommended. 4 mm calcified granuloma in the lateral aspect of the right upper lobe. Hardware:None Lymph Nodes:No enlarged lymph nodes are seen. Heart and Vasculature:Coronary artery calcifications are noted.Atherosclerotic calcifications of the thoracic aorta. Thoracic aorta and pulmonary arteries have normal contours; noncontrast technique limits evaluation. Coronary Artery Calcifications: Present Lungs and Airways: Moderate degree of emphysematous changes with scarring and bronchiectasis in the lower lobes worse on the right side. Upper Abdomen:Status post right nephrectomy. Bones:Degenerative changes of the thoracic spine. CT/Low Dose CT Lung Screening IMPRESSION: 1.7 cm 1.8 cm pleural-based nodular density in the peripheral lateral aspect of the right lower lobe as described. Coronary artery calcification (CAC) is is present Lung-RADS Category: 4B VERY SUSPICIOUS. RECOMMEND DIAGNOSTIC CHEST CT; PET/CT M AY BE CONSIDERED IF >=8MM SOLID NODULE OR SOLID COMPONENT; TISSUE SAMPLING; AND/OR REFERRAL FOR CLINICAL EVALUATION. IF AIRWAY NODULE THEN REFER FOR CLINICAL EVALUATION Other Significant Findings: None. Reading Location: [place] [id number]
== END | disposition home or self-care (01) ==
LOC: PSN 14:11
PROVIDERS: Referring Provider Nurse Practitioner Acute Care; Visit Provider Nurse Practitioner Acute Care
DX: F17.210 Nicotine dependence, cigarettes, uncomplicated (principal)
CPT/HCPCS: 71271

== ENCOUNTER 2024-12-10 18:23 | Emergency (ER) | payer MEDICARE, MEDICAID, SELFPAY ==
[2024-12-10 18:24] VITALS: BP 157/77; PULSE 92; RESP 18; TEMP 36.9; O2SAT 99
[2024-12-10] MEDS: 0.9% Normal Saline (1000mL) 1,000 ML 999 ML IV (18:51)
--- NOTE | 2024-12-10 18:51 | RAD_ITS ---
PROCEDURE: RIGHT FINGER(S) MIN 2 VIEWS 12/10/2024 REASON FOR EXAM: THUMB, [employer] TE[employer]ER INJURY TECHNIQUE: Procedure Code: RADFIN Modality: DX Procedure: FINGER(S) MIN 2 VIEWS Laterality: Right COMPARISON: None. FINDINGS: No acute fracture or dislocation. Alignment is anatomic. Preserved joint spaces. No aggressive osseous lesion. Generalized soft tissue swelling about the thumb. No radiopaque foreign body. RAD/Finger(s) Min 2 Views IMPRESSION: No acute fracture or dislocation. Soft tissue swelling about the right thumb. Reading Location: [id number]
[2024-12-10 18:52] VITALS: BMI 28.0
[2024-12-10 19:00] LABS: Hematocrit 36.4 % (40-54); Hemoglobin 12.4 g/dL (13.0-16.5); Immature Granulocytes Count 0.020 X10^3/uL (0.0-0.0); Mean Corp Hgb Conc 34.1 g/dL (32-36); Mean Corpuscular Volume 87.5 fL (80-94); Mean Platelet Vol. 9.4 fl (6.2-12.0); NRBC Flagged by Analyzer 0 % (0-5); Platelet Count 274 K/mm3 (150-450); RBC Distribution Width CV 15.2 % (11.6-14.6); RBC Distribution Width SD 48.7 fl (35.1-43.9); Red Blood Count 4.16 M/mm3 (4.6-6.2); White Blood Count 9.4 K/mm3 (4.4-11.0)
[2024-12-10] MEDS: Cefepime HCl 2 GM in 0.9% Normal Saline (100mL MB+) 100 ML IV (19:09)
--- NOTE | 2024-12-10 19:24 | EX.ED.GENINJ ---
HPI History of Present Illness Chief Complaint: Laceration Narrative Narrative: Patient is a 69-year-old male with past medical history of COPD, CAD, hypertension, asthma, chronic kidney disease who presents to the emergency department with a chief complaint of right thumb pain. 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 He states that he put his thumb over the end of the gun and squeezed the trigger and this fix the issue however bunch high-pressure water went into his thumb. He states that his thumb immediately swelled and he had severe pain. He states that water was coming out of his thumb. He states that he is unsure when his last tetanus shot was. He states that he does have feeling back in his thumb at this point in time. States that the pain has improved. [facility] Medical History Dyslipidemia Skin infection Chronic renal disease Bronchiectasis Nicotine dependence COPD (chronic obstructive pulmonary disease) Coronary artery disease Essential hypertension BPH (benign prostatic hyperplasia) Coronary artery calcification seen on CT scan History of renal cell cancer Coronary artery arteriosclerosis Abscess of right external ear Muscle spasm of left shoulder Injury of left rotator cuff Degenerative disc disease Smoking greater than 40 pack years Empyema of lung Collapse of right lung Stage 3 severe COPD by GOLD classification Pleural effusion Seasonal allergies Asthma Home Medications ?Medication ?Instructions ?Recorded ?Last Taken ?Type tamsulosin 0.4 mg capsule 0.4 mg PO DAILY ##30 10/07/18 Unknown Rx montelukast 10 mg tablet 10 mg PO QPM #30 tabs 04/22/20 Unknown Rx nicotine 10 mg/mL nasal spray 2 spray intranasal Q10-60M PRN 09/15/21 Unknown Rx (Nicotrol NS) nicotine cravings #40 mL amlodipine 10 mg tablet 10 mg PO DAILY #30 tabs 08/17/22 Unknown Rx sildenafil 100 mg tablet 100 mg PO DAILY PRN sexual activity 08/17/22 Unknown History pravastatin 20 mg tablet 20 mg PO QHS #30 tabs 01/20/23 Unknown Rx azelastine 205.5 mcg (0.15 %) 1 spray intranasal BID #30 mL 06/24/23 Unknown Rx nasal spray fluticasone propionate 50 1 spray NASAL BID #16 grams 06/24/23 Unknown Rx mcg/actuation nasal spray,suspension albuterol sulfate 90 mcg/actuation 2 puff inhalation Q4H PRN PRN Sob 02/22/24 Unknown Rx aerosol inhaler &/Or Wheezing #8.5 grams budesonide-formoterol HFA 160 2 puff inhalation BID #3 ea 02/22/24 Unknown Rx mcg-4.5 mcg/actuation aerosol inhaler (Symbicort) tiotropium bromide 2.5 2 inh inhalation QDAY #3 ea 02/22/24 Unknown Rx mcg/actuation mist for inhalation (Spiriva Respimat) clobetasol-emollient 0.05 % 1 applic topical BID 12/10/24 Unknown History topical cream levofloxacin 750 mg tablet 750 mg PO DAILY #10 tabs 12/10/24 Unknown Rx Allergy/AdvReac Type Severity Reaction Status Date / Time grass pollen Allergy Shortness Verified 12/10/24 18:24 of breath mold Allergy Shortness Verified 12/10/24 18:24 of breath Family History Brother Asthma Surgical History History of nephrectomy, right History of arthroscopy of knee H/O chest tube placement Social History Smoking Status: Current every day smoker tobacco type: cigarettes Tobacco: How many years used: 40 alcohol intake: current substance use type: does not use caffeine: Yes Type: coffee ROS ROS ED ROS Narrative Neurological: Denies any numbness, weakness, tingling Musculoskeletal: States that his right thumb pain has improved Skin: Complains of cut to his right thumb from stator plate washer as noted above EXAM Physical Exam Narrative Exam Narrative: General: Patient was lying in bed rest comfortably did not appear to be in acute distress Head: Atraumatic, normocephalic Eyes: PERRL bilaterally, EOMI bilaterally, no conjunctival injection noted Neck: Soft, supple, trachea midline Cardiovascular: Regular rate and rhythm Musculoskeletal: Patient does not have any pain along the volar aspect of his right thumb, no crepitus noted Extremities: Radial pulses +2/4 in the bilateral extremities, +5/5 strength in the bilateral upper and lower extremities Neurological: Patient following commands knew that he was at [facility] the year is 2024. Sensation grossly intact in the median, ulnar and radial nerve distribution Skin: Patient has a proximately 1-1/2 cm laceration over his volar aspect of his right thumb near the thumb pad region Const Vital Signs: 12/10/24 18:24 12/10/24 20:00 12/10/24 22:00 Temperature 98.4 F Temperature Source Oral Pulse Rate 92 83 83 Respiratory Rate 18 18 Blood Pressure 157/77 H 174/83 H 148/90 H Blood Pressure Mean 103 113 109 Pulse Ox 99 97 95 Oxygen Delivery Method Room Air Room Air Room Air MDM MDM MDM Narrative Medical decision making narrative: Patient is a 69-year-old male who presented to the emergency department the chief complaint of laceration to his right thumb from a stator plate washer. On the differential diagnose includes but not limited to laceration, high-pressure injection injury to the right thumb. Patient tetanus shot will be updated patient will be given 2 g of cefepime which were ordered at 1836. Patient CBC reviewed and showed no evidence leukocytosis white blood count normal at 9.4, he was 12.4, plate count of 274. Patient sodium is 139, potassium, 4, creatinine was elevated 1.54 this appears to be around his baseline, AST and ALT are 21 and 15 respectively. Patient's finger x-ray official report was not back for an extended period of time therefore we called again around 8:50 PM and asked for it to be read which was done and showed no acute fracture or dislocation soft tissue swelling about the right thumb. 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 He states that he feels fine and he states that he has been in much worse shape before coming into the hospital and states that he will return if things worsen. Patient will be placed on Levaquin. The wound was closely approximated but not sutured shut see procedure note for separate details. All question concerns were answered at bedside. He left AGAINST MEDICAL ADVICE. Procedure note Procedure name: Laceration repair Indication: Reduce risk of infection Location: Right thumb high-pressure injury with approximately 1-1/2 cm linear laceration Preprocedure diagnosis: Laceration Postprocedure diagnosis: Repaired laceration Informed consent was obtained prior to procedure started. Procedure: The appropriate timeout was taken. The area was prepped and draped in usual sterile fashion. Local anesthesia was achieved using 1 cc of lidocaine 1% without epinephrine. Wound was copiously irrigated. 1 4-0 Ethilon interrupted sutures were placed. Estimated blood loss was less than 0.5 mL. Dressing was applied to the area and anticipatory guidance, as well as standard postprocedure care was explained. Return precautions are given. Patient Toller procedure well without any complications. Follow-up visit for suture removal and evaluation of laceration. Lab Data Labs: Laboratory Results - last 24 hr 12/10/24 18:53 WBC 9.4 RBC 4.16 L Hgb 12.4 L Hct 36.4 L MCV 87.5 MCH 29.8 MCHC 34.1 RDW Std Deviation 48.7 H RDW Coeff of Clemencia 15.2 H Plt Count 274 MPV 9.4 Immature Gran % (Auto) 0.200 Neut % (Auto) 71.9 H Lymph % (Auto) 18.2 L [place] % (Auto) 4.9 Eos % (Auto) 4.6 Baso % (Auto) 0.2 Absolute Neuts (auto) 6.7 Absolute Lymphs (auto) 1.70 Nucleated RBC % 0 Sodium 139 Potassium 4.0 Chloride 103 Carbon Dioxide 22.1 Anion Gap 14 BUN 20 H Creatinine 1.54 H Estim Creat Clear Calc 47.47 L Est GFR (MDRD) Non-Af 49 L BUN/Creatinine Ratio 12.7 Glucose 139 H Calcium 9.1 Total Bilirubin 0.28 AST 21 ALT 15 Alkaline Phosphatase 124 Total Protein 7.4 Albumin 4.0 Globulin 3.4 Albumin/Globulin Ratio 1.2 Radiography Diagnostic Testing: Clinical Impression(s) from Imaging Studies Finger X-Ray 12/10/24 18:51 IMPRESSION: No acute fracture or dislocation. Soft tissue swelling about the right thumb. Reading Location: [facility] Discharge Plan Triage Chief Complaint: Laceration ED Provider: Lalit Martinez Dx/Rx/DC Orders Clinical Impression: High-pressure injection injury of finger of right hand, Laceration of right thumb, Asthma Prescriptions: New levofloxacin 750 mg tablet 750 mg PO DAILY Qty: 10 0RF No Action montelukast 10 mg tablet 10 mg PO QPM Qty: 30 3RF Nicotrol NS 10 mg/mL spray,non-aerosol 2 spray intranasal Q10-60M PRN (Reason: nicotine cravings) Qty: 40 1RF Rx Instructions: divide between both nostrils; do not exceed 5mg(10 sprays)/hr or 40mg(80 sprays)/24hr sildenafil 100 mg tablet 100 mg PO DAILY PRN (Reason: sexual activity) Patient Comments: TAKE 1 TABLET BY MOUTH 30 MINUTES prior to intercourse on an empty stomach with sexual stimulation immediately following amlodipine 10 mg tablet 10 mg PO DAILY Qty: 30 4RF budesonide-formoterol [Symbicort] 160-4.5 mcg/actuation HFA aerosol inhaler 2 puff inhalation BID Qty: 3 3RF Rx Instructions: administer with spacer, rinse mouth after each use albuterol sulfate 90 mcg/actuation HFA aerosol inhaler 2 puff inhalation Q4H PRN PRN (Reason: Sob &/Or Wheezing) Qty: 8.5 11RF Spiriva Respimat 2.5 mcg/actuation mist 2 inh inhalation QDAY Qty: 3 3RF Rx Instructions: administer at approximately the same time(s) each day tamsulosin 0.4 MG capsule 0.4 mg PO DAILY Qty: 30 0RF clobetasol-emollient 0.05 % cream 1 applic topical BID pravastatin 20 mg tablet 20 mg PO QHS Qty: 30 6RF azelastine 205.5 mcg (0.15 %) spray,non-aerosol 1 spray INTRANASAL BID Qty: 30 11RF Rx Instructions: administer into each nostril fluticasone propionate 50 mcg/actuation spray,suspension 1 spray NASAL BID Qty: 16 5RF Primary Care Provider: Caryl Naylor Referrals: Caryl Naylor, [facility] [Primary Care Provider, Family Practice] Activity Restrictions/Additional Instructions: Prescription for antibiotics were sent to your pharmacy you need to pick them up and take these as prescribed. Follow-up with the hand surgeon you are referred to. Return with worsening symptoms or any other concerns as we discussed. Have that suture removed in approximately 7 to 10 days. If there is concern for infection such as surrounding redness, severe pain, purulent drainage you need to return to the emergency department immediately. Print Language: Faroese Disposition Disposition: Against Medical Advice
[2024-12-10 19:38] LABS: AST(SGOT) 21 U/L (<=37); Alanine Aminotransfer ALT/SGPT 15 U/L (<=46); Albumin, Serum 4.0 g/dL (3.4-4.8); Alkaline Phosphatase 124 U/L (40-129); Anion Gap 14 (5-15); BUN 20 mg/dL (4-19); BUN/Creat Ratio 12.7 RATIO (10-20); Calcium,Total 9.1 mg/dL (7.6-11.0); Carbon Dioxide 22.1 mmol/L (21.0-32.0); Chloride 103 mmol/L (98-108); Estimated Creatinine Clearance 47.47 ml/min (50-250); Globulin 3.4 g/dL (2.2-4.2); Glucose 139 mg/dL (70-99); Potassium 4.0 mmol/L (3.3-5.1)
[2024-12-10 20:00] VITALS: BP 174/83; PULSE 83; RESP 18; O2SAT 97
[2024-12-10] MEDS: Lidocaine 1% (20 ml mdv) 20 ML Vial 10 ML INFILT (21:11)
[2024-12-10 22:00] VITALS: BP 148/90; PULSE 83; RESP 18; O2SAT 95
== END 2024-12-10 22:35 | disposition left against medical advice (07) ==
PROVIDERS: Emergency Provider Emergency Medicine; Visit Provider Emergency Medicine
DX: S61.011A Laceration without foreign body of right thumb without damage to nail, initial encounter (principal); I25.10 Atherosclerotic heart disease of native coronary artery without angina pectoris; N18.9 Chronic kidney disease, unspecified; E78.5 Hyperlipidemia, unspecified; I12.9 Hypertensive chronic kidney disease with stage 1 through stage 4 chronic kidney disease, or unspecified chronic kidney disease; S69.91XA Unspecified injury of right wrist, hand and finger(s), initial encounter; J45.909 Unspecified asthma, uncomplicated; W29.8XXA Contact with other powered hand tools and household machinery, initial encounter; F17.210 Nicotine dependence, cigarettes, uncomplicated; Z90.5 Acquired absence of kidney
CPT/HCPCS: 12001; 73140; 80053; 85025; 96365; 99284; A4216